=== PATIENT | male | born 1970 | race Two or more races ===

== ENCOUNTER 2021-04-26 07:58 | Outpatient (REF) | payer BC, SELFPAY ==
[2021-04-26 08:17] LABS: Binax Internal Control QC Valid; Binax Now Covid-19 Ag Negative (Negative)
== END 2021-04-26 07:59 | disposition home or self-care (01) ==
LOC: HO.LAB 07:58
PROVIDERS: Visit Provider Internal Medicine
DX: Z13.89 Encounter for screening for other disorder (principal)

== ENCOUNTER 2023-01-12 15:41 | Emergency (ER) | payer BC, SELFPAY ==
[2023-01-12] VITALS (8 sets, daily range): BP systolic 121–145; BP diastolic 67–84; PULSE 61–84; RESP 16–22; TEMP 36.9–37; O2SAT 95–98; BMI 26.6
--- NOTE | 2023-01-12 15:56 | ECG_ITS ---
Test Reason : syncope Blood Pressure : / mmHG Vent. Rate : 058 BPM Atrial Rate : 058 BPM P-R Int : 162 ms QRS Dur : 114 ms QT Int : 432 ms P-R-T Axes : 055 002 002 degrees QTc Int : 424 ms Sinus bradycardia Otherwise normal ECG When compared with ECG of 21-SEP-2019 15:18, Heart rate has decreased Referred By: Generic ED Physician Electronically Signed By:PEREZ KIM MD
[2023-01-12 16:29] LABS: MANUAL DIFF FLAG NO
[2023-01-12 16:35] LABS: Basophils Percent Auto 0.3 % (0-2); Eosinophils Absolute Auto 0.4 X10*3/uL (0.0-0.4); Hematocrit 49.2 % (42.0-52.0); Hemoglobin 15.8 g/dl (14.0-18.0); Imm Gran Abs Auto 0.01 X10*3/uL (0.00-0.03); Imm Gran Pct Auto 0.2 % (0.0-0.4); Lymphocytes Absolute Auto 1.4 X10*3/uL (1.2-4.9); Lymphocytes Percent Auto 23.6 % (20-40); Mean Corpuscular HGB Conc 32.1 g/dl (31.0-36.0); Mean Corpuscular Hemoglobin 26.6 pg (27.0-33.0); Mean Platelet Volume 9.4 fL (9.4-12.4); Monocytes Absolute Auto 0.5 X10*3/uL (0.1-1.2); Monocytes Percent Auto 9.3 % (2-11); Neutrophils Absolute Auto 3.5 x10*3/uL (2.0-8.3); Neutrophils Percent Auto 60.6 % (45-73); Platelet Count 373 X10*3/uL (160-400); Red Blood Count 5.93 X10*6/uL (4.60-5.80); Red Cell Distribution Width 14.5 % (11.0-16.0); White Blood Count 5.8 X10*3/uL (4.8-10.8)
[2023-01-12 16:46] LABS: Anion Gap 16 (12-20); Blood Urea Nitrogen 22 mg/dL (9-16); Calcium 9.4 mg/dL (8.4-10.2); Carbon Dioxide 23 mmol/L (22-29); Chloride 100 mmol/L (96-108); Creatinine Clr Calc Pharmacy 57.9; Estimated Glomerular Filt Rate 50; Glucose Random 112 mg/dL (60-115); Potassium 4.3 mmol/L (3.3-5.1); Sodium 135 mmol/L (135-145)
[2023-01-12 16:57] LABS: Troponin-I High Sensitivity < 2.7 ng/L (<3.5-35.0)
[2023-01-12 17:10] LABS: Appearance Urine Clear; Color Urine Yellow; Glucose Urine UA Negative (Negative); Leukocyte Esterase Urine Negative (Negative); Nitrite Urine Negative (Negative); Urine Blood Negative (Negative); Urine Ketones 15 mg/dL (Negative); Urine Protein Trace mg/dL (Neg-Trace)
--- NOTE | 2023-01-12 18:11 | ED_ITS ---
HPI - Syncope General Chief Complaint: Syncope Stated Complaint: MULT SYNCOPAL EPISODES,1 WITNESSED BY EMS Time Seen by Provider: 01/12/23 16:35 Source: patient Mode of arrival: EMS Limitations: no limitations History of Present Illness HPI narrative: Patient history of syncope episode in the about 3 years ago had full workup done including Holter monitoring and cardiac evaluation and sleep study which was normal today patient was shopping at [employer] got angry had a verbal argument on the phone then started feeling dizzy and lightheaded sat down and almost passed out no seizure-like activity no confusion patient had 2 more near-syncope per EMS person denied any . No incontinence no postictal confusion no headache no intra no chest pain or palpitation. at this time patient is back to normal lab workup done prior to my evaluation which is normal Related Data Allergies Allergy/AdvReac Type Severity Reaction Status Date / Time aspirin [ASPIRIN] Allergy Unknown SWELLING Unverified 12/11/19 16:44 Aspirin Allergy Unknown Uncoded 08/01/11 00:00 SHELLFISH Allergy Unknown SWELLING Uncoded 12/11/19 16:44 Review of Systems 2 Review of Systems: Yes all other systems are reviewed and are negative [facility] Social History Social History Smoked in Last 30 Days: No Use of substances other than those prescribed or required for medical reasons: No Advance Directives: No Advance Directives Information Provided: No Physical Exam 2 Vital Signs: Vital Signs: Last Vital Signs Temp 98.6 F 01/12/23 17:22 Pulse 79 01/12/23 18:27 Resp 18 01/12/23 18:25 BP 145/73 H 01/12/23 18:27 Pulse Ox 96 01/12/23 18:25 O2 Del Method Room Air 01/12/23 18:25 BMI result Body Mass Index 26.6 Appearance: Alert. Oriented X3. No acute distress. Eyes: PERRLA, No Nystagmus ENT: Pharynx normal. Oral Mucosa moist no tongue bite Neck: Normal inspection. Neck supple. CVS: Normal heart rate and rhythm. Pulses normal. Respiratory: No respiratory distress. Equal air entry bilateral, no wheezing/rales/rhonchi Abdomen: Soft and nontender. Bowel sounds are present, no mass palpable, no CVA tenderness Skin: Skin warm and dry. Normal skin color. Normal skin turgor. Extremities: No lower extremity edema. No calf tenderness Neuro: Oriented X 3. No motor deficit. No sensory deficit.No cerebellar signs , cranial nerves II-XII intact Medical Decision Making Medical Decision Making [facility] Narrative: Patient with near-syncope episode after been on the phone in anger. 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 Patient advised to drink plenty of fluids and follow with PCP Differential Diagnosis Differential Diagnoses: The differential diagnosis associated with the presentation includes Syncope/seizure/absence seizures/cardiac arrhythmias/panic attack/vasovagal episode Lab Data [facility] Lab Attestation statement: I reviewed the patient's lab results. 01/12/23 16:26 01/12/23 16:26 Labs: Lab Results 01/12/23 01/12/23 Range/Units 16:26 17:03 WBC 5.8 (4.8-10.8) X10*3/uL RBC 5.93 H (4.60-5.80) X10*6/uL Hgb 15.8 (14.0-18.0) g/dl Hct 49.2 (42.0-52.0) % MCV 83.0 (80.0-98.0) fL MCH 26.6 L (27.0-33.0) pg MCHC 32.1 (31.0-36.0) g/dl RDW 14.5 (11.0-16.0) % Plt Count 373 (160-400) X10*3/uL MPV 9.4 (9.4-12.4) fL Immature Gran % (Auto) 0.2 (0.0-0.4) % Neut % (Auto) 60.6 (45-73) % Lymph % (Auto) 23.6 (20-40) % [place] % (Auto) 9.3 (2-11) % Eos % (Auto) 6.0 H (0-4) % Baso % (Auto) 0.3 (0-2) % Lymph # (Auto) 1.4 (1.2-4.9) X10*3/uL [place] # (Auto) 0.5 (0.1-1.2) X10*3/uL Eos # (Auto) 0.4 (0.0-0.4) X10*3/uL Baso # (Auto) 0.0 (0.0-0.2) X10*3/uL Abs Immat Gran (auto) 0.01 (0.00-0.03) X10*3/uL Absolute Neuts (auto) 3.5 (2.0-8.3) x10*3/uL Absolute Nucleated RBC 0.000 (0.0-0.012) X10*3/uL Nucleated RBC % (auto) 0.0 (0.0-0.2) /100WBC Sodium 135 (135-145) mmol/L Potassium 4.3 (3.3-5.1) mmol/L Chloride 100 (96-108) mmol/L Carbon Dioxide 23 (22-29) mmol/L Anion Gap 16 (12-20) BUN 22 H (9-16) mg/dL Creatinine 1.49 H (0.5-1.4) mg/dL Estim Creat Clear Calc 57.9 Estimated GFR 50 Random Glucose 112 (60-115) mg/dL Calcium 9.4 (8.4-10.2) mg/dL Troponin I High Sens < 2.7 (<3.5-35.0) ng/L Urine Color Yellow Urine Appearance Clear Urine pH 7.0 (5.0-9.0) Ur Specific [place] 1.020 (1.005-1.025) Urine Protein Trace (Neg-Trace) mg/dL Urine Glucose (UA) Negative (Negative) mg/dL Urine Ketones 15 (Negative) mg/dL Urine Blood Negative (Negative) Urine Nitrite Negative (Negative) Ur Leukocyte Esterase Negative (Negative) Independent Interpretation I performed an independent interpretation of an: EKG Interpretation: Sinus bradycardia heart rate 58 beats per minute normal interval normal axis no acute ST T wave changes no acute ischemia Discharge Plan Discharge Clinical Impression: Vasovagal syncope Patient Disposition: Home, Self-Care Instructions: Near Syncope (ED) Additional Instructions: Drink plenty of fluids And follow with PCP for further management Your kidney number slightly elevated you have to follow-up with your PCP Stand Alone Forms: Work/School Release
== END 2023-01-12 18:36 | disposition home or self-care (01) ==
PROVIDERS: Emergency Provider Internal Medicine; PCP Internal Medicine
DX: R55 Syncope and collapse (principal)
CPT/HCPCS: 36415; 80048; 81003; 84484; 85025; 93005; 99283; 99285

== ENCOUNTER 2024-06-17 09:37 | Outpatient (AMB) | payer OTHER, SELFPAY ==
--- NOTE | 2024-06-17 09:48 | A.OFFPC_ITS ---
Vital Signs 06/17/24 09:53 Height 5 ft 4.5 in Weight 200 lb BMI 33.8 BP 170/82 H Blood Pressure Location Rt brachial Pulse 62 Pulse Source Pulse Oximeter Temp 97.5 F Pulse Oximetry (%) 96 Intake Visit Reasons: Annual Physical Exam Intake Note: when he eats feels food gets stuck in upper part of chest, needs colonoscopy, pain in right shoulder same as when he had issues in left shoulder before surgery and would like blood work done has been feeling tired, and in the bedroom has not been great. Allergies aspirin [ASPIRIN] Allergy (Unknown, Verified 06/17/24 09:53) SWELLING Aspirin Allergy (Unknown, Uncoded 06/17/24 09:53) Hives SHELLFISH Allergy (Unknown, Uncoded 12/11/19 16:44) SWELLING Medication List - Last Reconciled 06/17/24 by Brianna Malone PA-C omeprazole 20 mg PO DAILY PFSH Medical History (Updated 06/17/24 @ 10:43 by Brianna Malone PA-C) Elevated blood pressure reading in office without diagnosis of hypertension Class 1 obesity with body mass index (BMI) of 33.0 to 33.9 in adult Hearing loss in right ear Establishing care with new doctor, encounter for Annual physical exam Decreased range of motion of right shoulder Right shoulder pain GERD (gastroesophageal reflux disease) Nausea & vomiting Low libido Colon cancer screening Physical exam (Primary Care) Vital Signs: Last Vital Signs Temp 97.5 F 06/17/24 09:53 Pulse 62 06/17/24 09:53 BP 170/82 H 06/17/24 09:53 Pulse Ox 96 06/17/24 09:53 Care Plan Goal for BP management: <130/80; patient offered to be started on antihypertensive although patient hesitant he would like to go home keep a diary his blood pressure for the next 2 weeks and return with blood pressure diary. He understands if his blood pressure is elevated at home for the next 2 weeks and he will be started on a blood pressure medication at his 2 week visit. He is instructed to call us prior if his blood pressure is elevated and if he is having any neuro or cardiac related complaints. Patient understands this plan. BMI result Body Mass Index 33.8 BMI Assessment/Plan discussion: High BMI High, discussed plan: lifestyle, weight reduction, dietary, physical activity and alcohol moderation Coding Level of Care Code New Pt Prev Care 40-64y(26271) Diagnoses Annual physical exam Z00.00 Establishing care with new doctor, encounter for Z76.89 Colon cancer screening Z12.11 Low libido R68.82 Nausea & vomiting R11.2 GERD (gastroesophageal reflux disease) K21.9 Right shoulder pain M25.511 Decreased range of motion of right shoulder M25.611 Hearing loss in right ear H91.91 Class 1 obesity with body mass index (BMI) of 33.0 to 33.9 in adult E66.811; Z68.33 Elevated blood pressure reading in office without diagnosis of hypertension R03.0 Assessment & Plan Assessment & Plan (1) Annual physical exam: Code(s): Z00.00 - Encounter for general adult medical examination without abnormal findings Category: Medical (2) Establishing care with new doctor, encounter for: Code(s): Z76.89 - Persons encountering health services in other specified circumstances Category: Medical (3) Colon cancer screening: Code(s): Z12.11 - Encounter for screening for malignant neoplasm of colon Category: Medical Plan: Patient denies any weight loss, black or bloody stools, history of colon cancer. Will refer to GI for colon cancer screening. (4) Low libido: Code(s): R68.82 - Decreased libido Category: Medical Plan: Patient reports low libido, no energy and would like his testosterone levels checked along with a few vitamins level he requested. Will also refer to urologist. Condition is chronic and stable continue to monitor. (5) Nausea & vomiting: Code(s): R11.2 - Nausea with vomiting, unspecified Category: Medical Plan: Patient reports intermittent pain, pressure sensation with feeling like he has the vomit due to feeling to full may be related to GERD. Will start patient on omeprazole 20 mg daily. Referred to Gastroenterology for possible endoscope along with colonoscopy. Condition is chronic and stable continue to monitor. (6) GERD (gastroesophageal reflux disease): Code(s): K21.9 - Gastro-esophageal reflux disease without esophagitis Category: Medical Plan: Patient reports intermittent pain, pressure sensation with feeling like he has the vomit due to feeling to full may be related to GERD. Will start patient on omeprazole 20 mg daily. Referred to Gastroenterology for possible endoscope along with colonoscopy. Condition is chronic and stable continue to monitor. (7) Right shoulder pain: Code(s): M25.511 - Pain in right shoulder Category: Medical Plan: Patient reports chronic left shoulder pain with prior surgery due to prior rotator cuff injury. Does lift and go to the gym/exercising daily. Will order right shoulder x-ray and refer to ortho. Condition is chronic and stable continue to monitor. (8) Decreased range of motion of right shoulder: Code(s): M25.611 - Stiffness of right shoulder, not elsewhere classified Category: Medical Plan: Patient reports chronic left shoulder pain with prior surgery due to prior rotator cuff injury. Does lift and go to the gym/exercising daily. Will order right shoulder x-ray and refer to ortho. Condition is chronic and stable continue to monitor. (9) Hearing loss in right ear: Code(s): H91.91 - Unspecified hearing loss, right ear Category: Medical Plan: Patient reports chronic decreased/hearing loss to the right ear. In the past was offered hearing aids or cochlear implant. Will refer to ENT for further evaluation and management. Condition is chronic and stable continue to monitor. (10) Class 1 obesity with body mass index (BMI) of 33.0 to 33.9 in adult: Code(s): E66.811 - Obesity, class 1; Z68.33 - Body mass index [BMI] 33.0-33.9, adult Category: Medical Plan: Patient to improve his diet and exercise regimen. Condition is chronic and stable continue to monitor. (11) Elevated blood pressure reading in office without diagnosis of hypertension: Code(s): R03.0 - Elevated blood-pressure reading, without diagnosis of hypertension Category: Medical Plan: <130/80; patient offered to be started on antihypertensive although patient hesitant he would like to go home keep a diary his blood pressure for the next 2 weeks and return with blood pressure diary. He understands if his blood pressure is elevated at home for the next 2 weeks and he will be started on a blood pressure medication at his 2 week visit. He is instructed to call us prior if his blood pressure is elevated and if he is having any neuro or cardiac related complaints. Patient understands this plan. Plan Plan Patient was informed and verbally consented to the use of an ambient scribe for clinic note documentation during this visit. 1. Low Libido And Potential Hypogonadism Ordered endocrine testing; referral to urology discussed if results suggest abnormalities. 2. Suspected Gerd Prescribed omeprazole and made a referral to gastroenterology for further evaluation and testing. 3. Unspecified hearing loss, unspecified ear Discussed ENT referral, detailing current technology advancements as options. 4. Essential Hypertension Home monitoring of blood pressure was recommended with potential initiation of antihypertensive therapy after review. Diet modifications and daily tracking advised. 5. Right Shoulder Pain And Decreased Range Of Motion Ordered x-ray and referred to orthopedics for assessment and possible further investigation. 6. Hyperlipidemia Recommended lipid panel evaluation for status assessment and management. 7. Vasovagal Syncope Continued monitoring with emphasis on lifestyle and environmental triggers. Discussion Notes During the consultation, we addressed several chronic and emerging health concerns, evaluating and advising on potential management plans. I discussed with the patient the importance of monitoring and potentially starting medication for hypertension, based on recorded pressures and symptoms. The patient was informed of the necessity to consult orthopedics and ENT specialists for persistent musculoskeletal and auditory deficits. Regarding gastrointestinal symptoms, pharmacological management with omeprazole was started, with a follow-up at gastroenterology for a thorough evaluation and possible tests, including an H. pylori assessment. I emphasized the implications of not undergoing routine age-related screenings like colonoscopy, considering familial predispositions. There was a detailed review of recurrent syncope, recommending vigilance for precipitating contexts. With concerns of libido reduction and testosterone deficiency, laboratory analyses and potential urological consultations were discussed to explore underlying causes. We reviewed prior lipid management and advocated subsequent checks and lifestyle modifications aimed at control. I guided the patient through follow-up procedures, mindful of the configuration of his health maintenance journey. Encouragement was provided to seek further opinions on auditory impairment with a low invasion option. Each component of the plan was accompanied by an explanation, per the patient's safety and informed decisions. Scheduled follow- up was secured for cohesive care continuity. Orders: Orders Complete Blood Count Auto Diff Today Z00.00 - Encounter for general adult medical examination without abnormal findings Comprehensive [place]. Panel Fast Today Z00.00 - Encounter for general adult medical examination without abnormal findings C Reactive Protein Today Z00.00 - Encounter for general adult medical examination without abnormal findings Lipid Panel Today Z00.00 - Encounter for general adult medical examination without abnormal findings Testosterone, Total Today Z00.00 - Encounter for general adult medical examination without abnormal findings Magnesium Today Z00.00 - Encounter for general adult medical examination without abnormal findings Vitamin B12 and Folate Today Z00.00 - Encounter for general adult medical ex amination without abnormal findings TSH reflex Free T4 Today Z00.00 - Encounter for general adult medical examination without abnormal findings PSA,Total (Free>4and<10) Today Z00.00 - Encounter for general adult medical examination without abnormal findings H pylori Ag Stool Today K21.9 - Gastro-esophageal reflux disease without esophagitis, R11.2 - Nausea with vomiting, unspecified, R68.82 - Decreased libido, Z12.11 - Encounter for screening for malignant neoplasm of colon XR shoulder RT min 2V Today M25.511 - Pain in right shoulder Hemoglobin A1c Today Z00.00 - Encounter for general adult medical examination without abnormal findings Liver Panel Today Z00.00 - Encounter for general adult medical examination without abnormal findings Vitamin D 25-OH Total Today Z00.00 - Encounter for general adult medical examination without abnormal findings Referrals Gastroenterology Referral Z12.11 - Encounter for screening for malignant neoplasm of colon Urology Referral R68.82 - Decreased libido Orthopedics Referral M25.511 - Pain in right shoulder, M25.611 - Stiffness of right shoulder, not elsewhere classified Ear/Nose/Throat Referral H91.91 - Unspecified hearing loss, right ear Medications: New omeprazole 20 mg PO DAILY 90 caps 1RF Patient Instructions: Patient Instructions - Monitor blood pressure daily at home using a purchased blood pressure cuff; report findings at next visit. - Maintain a low sodium diet to help manage hypertension. - Take omeprazole 20 mg daily as prescribed for suspected GERD. - Follow up with gastroenterology to test for H. pylori and discuss further testing for GERD. - Schedule an orthopedic consultation for right shoulder pain assessment. - Minimize triggers that may induce syncope episodes. - Schedule routine blood work for comprehensive panels, including lipids, testosterone, and PSA. - Schedule a colonoscopy for colorectal cancer screening. - Consider making an appointment with an ENT specialist to discuss hearing loss solutions. Scribe Plan - Not visible on output: History of Present Illness The patient is a 54-year-old male presenting for a routine annual physical examination, to establish a new primary care provider as he has not seen a PCP in over 20-25 years and in addition evaluation of multiple chronic conditions. Today his blood pressure was noted to be elevated. He reports he was never diagnosed with elevated blood pressure although when I reviewed the patient's prior blood pressure appears his blood pressure has been steadily climbing since . He denies any cardiac related complaints or neuro related complaints at this time. The patient has undergone surgical repair for a rotator cuff injury on the left shoulder but now experiences similar symptoms on the right side, described as sharp pain hindering range of motion, especially in the morning. Worse with range of motion. He normally works out although does not do any of the heavy lifting as much as before. He denies ever having imaging of the right shoulder. He denies any recent falls or direct trauma to the right shoulder, weakness, paresthesias or any symptoms related to this. Patient reports a prior history of hyperlipidemia which is controlled by diet and exercise patient reports. Cardiovascular history reveals vasovagal syncope, infrequent blackouts suggestive of panic attacks or hyperventilation, and relevant past EKGs showing sinus bradycardia without recent episodes. Diagnostic workup from 2022 indicated elevated kidney function, not yet rechecked. He reports gastrointestinal symptoms suggestive of GERD, such as dysphagia- induced discomfort, alleviated occasionally by induced vomiting or hiccupping, possibly indicative of esophageal disturbances. Discussions highlighted potential for hernia, GERD management, and assumptions with an H. pylori link from family history. Additionally, the patient encounters low libido and explores possible hypogonadism, planning consultations with urology specialists. Despite right ear auditory shortcomings over decades, treatment suggestions like hearing aids or implants have been consistently disregarded. Positive nutritional habits are referenced, and there appears to be no surrender to substance or alcohol abuse. Social History - Exercises regularly at a gym with modified routines to prevent injury. - Nutritional intake mainly consists of rice, chicken, ground beef, with no mention of alcohol or tobacco use. - Reports being deaf in the right ear for many years, possibly affecting communication. - , discusses healthcare concerns with a family member. - Has never had a colonoscopy but plans to undergo colorectal cancer screening following family suggestions. Review of Systems - Cardiovascular: Reports dizziness associated with syncope. - Musculoskeletal: Reports right shoulder sharp, stabbing pain; decreased range of motion. - Gastrointestinal: Reports feeling of food getting stuck, relieved by vomiting or hiccupping. Physical Exam Appearance: Alert. Oriented X3. No acute distress. Head: Normal external exam. Normocephalic. Atraumatic. Eyes: Pupils are equal, round, and reactive to light. Extraocular movements intact. Conjunctiva and sclera normal. Eyelids normal. Ears: External auditory canal normal. Tympanic membranes normal. Patient reports being deaf in the right ear. Throat: Pharynx normal. Uvula midline. Moist mucous membranes. Neck: Normal inspection. Neck supple. Full range of motion. No adenopathy. Thyroid Normal. No meningeal signs. No neck mass noted. Cardiovascular: Normal heart rate and rhythm. Heart sound normal. No murmurs noted. Pulses normal throughout. Blood pressure reported as high, with a recent reading of 170/82. Respiratory: No respiratory distress. Painless inspiration. Breath sounds normal. No wheezes/rales/rhonchi noted. Chest nontender. No accessory muscle usage noted or decreased air movement noted. Abdomen: Soft and nontender. Bowel sounds normal in all 4 quadrants. No distention noted. No organomegaly noted. No visible injury noted. Back: No costovertebral angle tenderness. Full range of motion noted. Skin: Skin warm and dry. Normal skin color. Normal skin turgor. No rashes/lesions/lacerations noted. Extremities: No lower extremity edema. Right shoulder with decreased range of motion when attempting to raise over his head. There is no obvious deformities or obvious ligamentous or tendon injury. There is no joint effusions noted. No extremity edema is noted. Normal pulses. No cyanosis is noted. Normal range of motion to the elbow, hand and wrist joint. Otherwise all other extremities exhibit normal range of motion nontender. Neuro: Oriented X 3. No motor deficit. No sensory deficit. Reflexes normal. Reports episodes of vasovagal syncope and sinus bradycardia on EKG. Results - Labs: Elevated kidney function noted in 2022 labs; cholesterol status unmanaged at present. - Tests: Previous EKG showed sinus bradycardia, normal axis, no acute changes.
[2024-06-17 09:53] VITALS: BP 170/82; PULSE 62; TEMP 36.4; O2SAT 96; BMI 33.8
--- OUTSIDE RECORDS SUMMARY | 2024-06-17 10:51 | XMS_ITS | Clinical Summary ---
Author Organization [facility] Address [address] [place] [address] Care Team Providers Care Fha Underwriter Name Role Phone Ralph Rdz MD Primary Care Provider Allergies Active Allergy Reactions Criticality Noted Date Comments Aspirin 01/10/2017 Seafood 01/10/2017 Medications Medication Sig Dispensed Refills Start Date End Date Status sildenafil (VIAGRA) 50 MG tablet Take 50 mg by mouth daily as needed. 0 11/13/2019 Active atorvastatin (LIPITOR) tablet 40 mg Take 40 mg by mouth daily. 0 01/06/2020 Active clotrimazole (LOTRIMIN AF JOCK ITCH) 1 % cream Apply once daily for 2 weeks to affected area 0 01/10/2017 Active tadalafil (CIALIS) 20 MG tablet Take half a pill at least 30 minutes prior to anticipated sexual activity as one single dose and not more than once daily. 0 02/12/2017 Active meloxicam (MOBIC) 15 MG tablet Take 1 tablet daily for 7 days following surgery, beginning the night of surgery 7 tablet 0 03/29/2020 Active gabapentin (Neurontin) 300 MG capsule Take 300mg for 3 days at bedtime. Please start 1 night prior to surgery 3 capsule 0 03/29/2020 Active oxyCODONE (ROXICODONE) 5 MG immediate release tablet Take 1 tablet (5 mg total) by mouth every 6 (six) hours as needed for pain. Do not take until after surgery 25 tablet 0 03/29/2020 Active promethazine (PHENERGAN) 12.5 MG tablet Take 1 tablet (12.5 mg total) by mouth every 8 (eight) hours as needed for nausea. Use after surgery as needed 4 tablet 0 03/29/2020 Active tiZANidine (ZANAFLEX) 2 MG tablet Take 2 mg by mouth 3 (three) times a day as needed. 0 03/01/2020 Active Active Problems No known active problems Family History Medical History Relation Name Comments Cancer Father Cancer Mother Relation Name Status Comments Father Mother Social History Tobacco Use Types Packs/Day Years Used Date Smoking Tobacco: Never Smokeless Tobacco: Never Alcohol Use Standard Drinks/Week Comments No 0 (1 standard drink = 0.6 oz pur e alcohol) Sex and Gender Information Value Date Recorded Sex Assigned at Not on file Gender Identity Not on file Sexual Orientation Not on file Job Start Date Occupation Industry Not on file Not on file Not on file Last Filed Vital Signs Vital Sign Reading Time Taken Comments Blood Pressure - - Pulse - - Temperature - - Respiratory Rate - - Oxygen Saturation - - Inhaled Oxygen Concentration - - Weight 93 kg (205 lb) 06/14/2020 2:05 PM EDT Height 162.6 cm (5' 4 ) 06/14/2020 2:05 PM EDT Body Mass Index 35.19 06/14/2020 2:05 PM EDT Plan of Treatment Health Maintenance Due Date Last Done Comments Hepatitis B Vaccines (1 of 3 - 3-dose series) 1970 Hepatitis C Screening 1970 COVID-19 Vaccine (#1) 1970 Depression Screening 1982 BMI Counseling 02/06/1988 Preventative Health Evaluation 02/06/1988 DTap / Tdap / Td (1 - Tdap) 1989 Colon Cancer Screening (Colonoscopy) 2015 Shingrix-Zoster Vaccine (1 of 2) 02/06/2020 Influenza Vaccine (#1) 2023 02/08/2017 Pneumococcal Vaccine Aged Out No long er eligible based on patient's age to complete this topic RSV Ped < 20 months Aged Out No longe r eligible based on patient's age to complete this topic Care Teams Fha Underwriter Relationship Specialty Start Date End Date Ralph Rdz MD [address] [place] [id number] PCP - General Internal Medicine 01/02/20
--- OUTSIDE RECORDS SUMMARY | 2024-06-17 10:51 | XMS_ITS | Continuity of Care Document ---
Author Organization [facility] [address] [place] [address] Phone [phone] Social History Type Date Description Comments Sex Unknown Medical Devices Description No Information Available Encounters Description No Information Available Assessments Description No Information Available Plan of Treatment No Information Available Functional Status Description No Information Available Mental Status Description No Information Available Referrals Description No Information Available
== END 2024-06-17 10:23 | disposition home or self-care (01) ==
LOC: HO.HMCSH 09:37
PROVIDERS: PCP Internal Medicine; Visit Provider Physician Assistant Medical
DX: Z00.00 Encounter for general adult medical examination without abnormal findings (principal); Z76.89 Persons encountering health services in other specified circumstances; Z12.11 Encounter for screening for malignant neoplasm of colon; R68.82 Decreased libido; R11.2 Nausea with vomiting, unspecified; K21.9 Gastro-esophageal reflux disease without esophagitis; M25.511 Pain in right shoulder; M25.611 Stiffness of right shoulder, not elsewhere classified; H91.91 Unspecified hearing loss, right ear; E66.811 Obesity, class 1; Z68.33 Body mass index [BMI] 33.0-33.9, adult; R03.0 Elevated blood-pressure reading, without diagnosis of hypertension

== ENCOUNTER → 2024-06-17 09:37 | Outpatient (BNVA) | payer OTHER, SELFPAY | PROVIDERS: PCP Internal Medicine; Visit Provider Physician Assistant Medical ==

== ENCOUNTER 2024-06-21 07:35 | Outpatient (REF) | payer OTHER, SELFPAY ==
[2024-06-21 08:12] LABS: MANUAL DIFF FLAG NO
[2024-06-21 08:36] LABS: Basophils Percent Auto 0.5 % (0-2); Eosinophils Absolute Auto 0.4 X10*3/uL (0.0-0.4); Eosinophils Percent Auto 6.9 % (0-4); Hematocrit 52.7 % (42.0-52.0); Hemoglobin 17.8 g/dl (14.0-18.0); Imm Gran Abs Auto 0.02 X10*3/uL (0.00-0.03); Imm Gran Pct Auto 0.3 % (0.0-0.4); Lymphocytes Absolute Auto 1.8 X10*3/uL (1.2-4.9); Lymphocytes Percent Auto 27.3 % (20-40); Mean Corpuscular HGB Conc 33.8 g/dl (31.0-36.0); Mean Corpuscular Hemoglobin 27.9 pg (27.0-33.0); Mean Corpuscular Volume 82.7 fL (80.0-98.0); Mean Platelet Volume 10.7 fL (9.4-12.4); Monocytes Absolute Auto 0.5 X10*3/uL (0.1-1.2); Monocytes Percent Auto 8.1 % (2-11); Neutrophils Absolute Auto 3.7 x10*3/uL (2.0-8.3); Neutrophils Percent Auto 56.9 % (45-73); Platelet Count 188 X10*3/uL (160-400); Red Blood Count 6.37 X10*6/uL (4.60-5.80); Red Cell Distribution Width 12.6 % (11.0-16.0); White Blood Count 6.4 X10*3/uL (4.8-10.8)
[2024-06-21 08:42] LABS: Estimated Average Glucose 123 mg/dL; Hemoglobin A1c % 5.9 % (<6.0)
[2024-06-21 09:35] LABS: Alanine Aminotransferase 41 U/L (0-40); Albumin Level 4.2 g/dL (3.5-5.0); Alkaline Phosphatase 46 U/L (39-117); Anion Gap 11 (12-20); Aspartate Amino Transferase 45 U/L (5-37); Bilirubin Direct 0.2 mg/dL (0.0-0.5); Bilirubin Total 0.9 mg/dL (0.0-1.0); Blood Urea Nitrogen 13 mg/dL (9-16); C Reactive Protein 0.13 mg/dL (< or = 0.50); Calcium 9.1 mg/dL (8.4-10.2); Carbon Dioxide 22 mmol/L (22-29); Chloride 110 mmol/L (96-108); Cholesterol 201 mg/dL (<200); Estimated Glomerular Filt Rate > 60; Glucose Fasting 91 mg/dL (60-99); HDL Cholesterol 30 mg/dL (>40); LDL Cholesterol Calculated 148 mg/dL (<100); Magnesium 2.4 mg/dL (1.6-2.6); Sodium 139 mmol/L (135-145); Total Protein 7.3 g/dL (6.5-8.0); Triglycerides 118 mg/dL (<150)
[2024-06-21 09:39] LABS: TSH reflex Free T4 0.92 uIU/mL (0.32-4.0); Vitamin D 25-OH Total 21.8 ng/mL (>30)
[2024-06-21 09:44] LABS: PSA,Total (Free>4and<10) 0.67 ng/mL (0.00-4.00)
[2024-06-21 09:58] LABS: Folate 11.7 ng/mL (> or = 4.0); Vitamin B12 724 pg/mL (200-900)
[2024-06-26 15:14] LABS: Testosterone, Total 1665 ng/dL (250-1100)
== END 2024-06-21 07:36 | disposition home or self-care (01) ==
LOC: HO.LAB 07:35
PROVIDERS: PCP Internal Medicine; Visit Provider Physician Assistant Medical
DX: Z00.00 Encounter for general adult medical examination without abnormal findings (principal); R11.2 Nausea with vomiting, unspecified; K21.9 Gastro-esophageal reflux disease without esophagitis; R68.82 Decreased libido; Z12.11 Encounter for screening for malignant neoplasm of colon; Z12.5 Encounter for screening for malignant neoplasm of prostate; Z13.1 Encounter for screening for diabetes mellitus; Z13.6 Encounter for screening for cardiovascular disorders
CPT/HCPCS: 36415; 80053; 80061; 80076; 82248; 82306; 82607; 82746; 83036; 83735; 84153; 84403; 84443; 85025; 86140; 87338

== ENCOUNTER 2024-07-02 09:58 | Outpatient (AMB) | payer OTHER, SELFPAY ==
[2024-07-02 10:06] VITALS: BP 128/88; PULSE 80; RESP 14; TEMP 36.4; O2SAT 97; BMI 34.5
--- NOTE | 2024-07-02 10:06 | A.OFFPC_ITS ---
Vital Signs 07/02/24 10:06 Height 5 ft 4.5 in Weight 204 lb BMI 34.5 BP 128/88 Respiration 14 Pulse 80 Pulse Source Pulse Oximeter Temp 97.6 F Temp Source Temporal Artery Scan Pulse Oximetry (%) 97 Oxygen Delivery Method Room Air Intake Visit Reasons: 2 week f/u Director Of Archives Required: No Accompanied by: Self / Same As Patient Allergies aspirin [ASPIRIN] Allergy (Unknown, Verified 07/02/24 10:32) SWELLING Aspirin Allergy (Unknown, Uncoded 07/02/24 10:32) Hives SHELLFISH Allergy (Unknown, Uncoded 07/02/24 10:32) SWELLING Medication List - Last Reconciled 07/02/24 by Brianna Malone PA-C cholecalciferol (vitamin D3) 25 mcg PO DAILY clarithromycin 500 mg PO BID 14 days metronidazole 500 mg PO TID 14 days omeprazole 20 mg PO BID 14 days rosuvastatin (Crestor) 10 mg PO DAILY Tobacco use date assessed: 07/02/24 Dental Screening Dental Screen Date: 07/02/24 Did you have a dental visit in the last 12 months?: No Did you have a dental problem in the last 6 months where you did not have access to dental care?: No Was dental information given to patient?: Patient has dentist HPI 2 week f/u HPI Details History of Present Illness The patient is a 54-year-old male presenting with a follow-up visit concerning elevated blood pressure reading at his last visit and elevated liver function tests. He reports that his home blood pressure readings have generally been satisfactory but acknowledges instances where stress from work may influence elevations in his readings momentarily. Elevated liver function tests, particularly ALT and AST, with levels at 45 and 41 respectively, prompted further evaluation. The patient denies alcohol intake and describes slight abdominal unease. He previously tested positive for H. pylori and is presently undergoing treatment. In addition to elevated blood pressure readings and liver concerns, the patient experiences low libido, leading to an upcoming urology evaluation. Elevated testosterone is noted; nonetheless, the cause of libido concerns remains under investigation. Regarding auditory health, the patient is awaiting an ENT appointment following noted hearing issues. He also reports pain in his right shoulder, addressed through planned orthopedic consultation. The patient's history with hypercholesterolemia is managed with Crestor, and he's actively making dietary changes. Vitamin D deficiency is supplemented. High B12 levels were previously highlighted but are under control during current assessments. Social History - Employment: Experiencing job-related s tress. - Lifestyle: Engaged in cardiovascular e xercise. - Diet: Modifying diet to manage cholest jhon. - Substance Use: Denies alcohol consumpt ion. - Family Health: Sister with a similar h ealth profile and surgery history; advised on H. pylori testing for family. [facility] Medical History Elevated ALT measurement Elevated AST (SGOT) Abdominal pain H. pylori infection Elevated blood pressure reading in office without diagnosis of hypertension Class 1 obesity with body mass index (BMI) of 33.0 to 33.9 in adult Hearing loss in right ear Establishing care with new doctor, encounter for Annual physical exam Decreased range of motion of right shoulder Right shoulder pain GERD (gastroesophageal reflux disease) Nausea & vomiting Low libido Colon cancer screening Surgical History History of hernia surgery History of shoulder surgery Family History Father Cancer Mother HIV (human immunodeficiency virus infection) Social History Housing: House Alcohol intake: current Alcohol intake frequency: holidays/special occasions only Patient Tobacco Use Status: Never used Tobacco service: No Current occupational status: employed Cognitive needs: No Hearing needs: No Vision needs: Yes (rx glasses) Questionnaire PHQ-9 Over the last 2 weeks, how often have you been bothered by any of the following problems? 1. Little interest or pleasure in doing things: not at all 2. Feeling down, depressed, or hopeless: not at all 3. Trouble falling or staying asleep, or sleeping too much: not at all 4. Feeling tired or having little energy: not at all 5. Poor appetite or overeating: not at all 6. Feeling bad about yourself - or that you are a failure or have let yourself or your family down: not at all 7. Trouble concentrating on things, such as reading the newspaper or watching television: not at all 8. Moving or speaking so slowly that other people could have noticed. Or the opposite - being so fidgety or restless that you have been moving around a lot more than usual: not at all 9. Thoughts that you would be better off or of hurting yourself in some way: not at all Total score: 0 Depression Screening Interpretation: Negative Depression Screening Done: Yes 53492 - PHQ-9 Billing: Yes Source: Developed by Drs. Florencio Marie, Zulema Tinoco, Dong Garduno and colleagues, with an educational hayden from [employer]. Thrive Questionnaire Date Thrive assessed: 07/02/24 I am a: Patient What is your living situation today?: I have a steady place to live Within the past 12 months, did the food you bought not last and you didn't have the money to get more?: Never true Within the past 12 months, did you worry whether your food would run out before you got money to buy more?: Never true Do you have trouble paying for medicines?: No Do you have trouble getting transportation to medical appointments?: No Do you have trouble paying your heating and electricity bill?: No Do you have trouble taking care of your child, family member or friend?: No Do you have trouble with day-to-day activities such as bathing, preparing meals, shopping, managing finances, etc.?: No Are you currently unemployed and looking for a job?: No Are you interested in more education?: No Please select the resources that you would like help with: None THRIVE Score: 0 AUDIT C Alcohol Use Questionnaire (AUDIT-C) 1. How often do you have a drink containing alcohol?: Monthly or less 2. How many drinks containing alcohol do you have on a typical day when you are drinking?: 1 or 2 3. How often do you have six or more drinks on one occasion?: Never Total Score: 1 Score Reviewed/Action Taken: No WILTON-7 AMB Questionnaire WILTON-7 Date WILTON - 7 assessed: 07/02/24 Feeling nervous, anxious, or on edge: 0 = Not at all Not being able to stop or control worryin = Not at all Worrying too much about different things: 0 = Not at all Trouble relaxin = Not at all Being so restless that it is hard to sit still: 0 = Not at all Becoming easily annoyed or irritable: 0 = Not at all Feeling afraid as if something awful might happen: 0 = Not at all Total WILTON-7 score (0-4 normal; 5-9 mild; 10-14 moderate; 15-21 severe): 0 Source: Developed by Drs. Florencio Marie, Zulema Tinoco, Dong Garduno and colleagues, with an educational hayden from [employer]. WILTON-7 Assessment Billing WILTON-7 Assessment Tool: WILTON-7 Assessment 44574 Review of Systems Const Details: - Cardiovascular: Reports mild stress-related fluctuations in blood pressure. - Gastrointestinal: Reports abdominal discomfort; denies pain; positive for H. pylori. - Endocrine: Acknowledges low libido. - Musculoskeletal: Reports right shoulder pain. - Ear, Nose, Throat: Reports hearing issues. - Psychiatric: Denies mood disturbances but acknowledges job-related stress. Physical exam (Primary Care) Vital Signs: Last Vital Signs Temp 97.6 F 07/02/24 10:06 Pulse 80 07/02/24 10:06 Resp 14 07/02/24 10:06 BP 128/88 07/02/24 10:06 Pulse Ox 97 07/02/24 10:06 Oxygen Delivery Method Room Air 07/02/24 10:06 Care Plan Goal for BP management: <130/80 at Goal BMI result Body Mass Index 34.5 BMI Assessment/Plan discussion: High BMI High, discussed plan: lifestyle, weight reduction, dietary, physical activity and alcohol moderation Tobacco/Smoking Status: Tobacco use Status Tobacco use date assessed 07/02/24 07/02/24 10:16 Patient Tobacco Use Status Never used Tobacco 07/02/24 10:16 PHQ-9: PHQ-9 Score PHQ-9: Total score 0 07/02/24 10:16 Depression Screening Interpretation: Negative Thrive Assessment: Date of Thrive Assessment Date Thrive assessed 07/02/24 07/02/24 10:16 Const Other: Physical Exam Appearance: Alert. Oriented X3. No acute distress. Head: Normal external exam. Normocephalic. Atraumatic. Eyes: Pupils are equal, round, and reactive to light. Extraocular movements intact. Conjunctiva and sclera normal. Eyelids normal. Throat: Pharynx normal. Uvula midline. Moist mucous membranes. Neck: Normal inspection. Neck supple. Full range of motion. Cardiovascular: Normal heart rate and rhythm. Heart sound normal. No murmurs noted. Respiratory: No respiratory distress. Painless inspiration. Breath sounds sharon l. Abdomen: Soft and nontendermild upper abd pain. Back: Full range of motion noted. Skin: Skin warm and dry. Normal skin color. Normal skin turgor. No rashes/lesions/lacerations noted. Extremities: Extremities exhibit normal range of motion. Extremities nontender. Neuro: Oriented X 3. No motor deficit. No sensory deficit. Reflexes normal. Results Reviewed Results Reviewed: Results - Labs: Elevated ALT (45) and AST (41), vitamin D deficiency, elevated B12 levels. - Tests and Diagnostics: Positive H. pylori; abdominal ultrasound planned pending prior discussions. Coding Level of Care Code Est Pt Level 3 (13108) Complex EM visit Add On G2211 Diagnoses H. pylori infection A04.8 GERD (gastroesophageal reflux disease) K21.9 Nausea & vomiting R11.2 Abdominal pain R10.9 Elevated ALT measurement R74.01 Elevated AST (SGOT) R74.01 Decreased range of motion of right shoulder M25.611 Low libido R68.82 Hearing loss in right ear H91.91 Class 1 obesity with body mass index (BMI) of 33.0 to 33.9 in adult E66.811; Z68.33 Elevated blood pressure reading in office without diagnosis of hypertension R03.0 Additional Codes PHQ-9 - 95368 - PHQ-9 Billing: Yes ([id number]) WILTON-7 Assessment Billing - WILTON-7 Assessment Tool: WILTON-7 Assessment 25011 ([id number]) Assessment & Plan Assessment & Plan (1) H. pylori infection: Code(s): A04.8 - Other specified bacterial intestinal infections Category: Medical Plan: Complete the prescribed antibiotic course and reassess to confirm eradication. Condition is improving and stable will continue to monitor. (2) GERD (gastroesophageal reflux disease): Code(s): K21.9 - Gastro-esophageal reflux disease without esophagitis Category: Medical Plan: Patient to continue omeprazole 20 mg b.i.d. will follow-up with GI. Condition is chronic and stable continue to monitor. (3) Nausea & vomiting: Code(s): R11.2 - Nausea with vomiting, unspecified Category: Medical Plan: Patient to continue H pylori medications. Follow-up with GI. Condition is improving and stable will continue to monitor. (4) Abdominal pain: Code(s): R10.9 - Unspecified abdominal pain Category: Medical Plan: Patient to continue H pylori medications/treatment. Follow-up with GI. Condition is improving and stable. (5) Elevated ALT measurement: Code(s): R74.01 - Elevation of levels of liver transaminase levels Category: Medical Plan: Patient's AST and ALT mildly elevated he does have mild upper abdominal pain. Will refer to GI. Patient will also have a CT scan abdomen pelvis with and without IV/oral contrast. Condition is new and stable will continue to monitor. (6) Elevated AST (SGOT): Code(s): R74.01 - Elevation of levels of liver transaminase levels Category: Medical Plan: Patient's AST and ALT mildly elevated he does have mild upper abdominal pain. Will refer to GI. Patient will also have a CT scan abdomen pelvis with and without IV/oral contrast. Condition is new and stable will continue to monitor. (7) Decreased range of motion of right shoulder: Code(s): M25.611 - Stiffness of right shoulder, not elsewhere classified Category: Medical Plan: Orthopedic evaluation pending for further management. Condition is chronic and stable continue to monitor. (8) Low libido: Code(s): R68.82 - Decreased libido Category: Medical Plan: Further evaluation by urology to explore and address concerns of low libido, despite adequate testosterone levels. Condition is chronic and stable continue to monitor. (9) Hearing loss in right ear: Code(s): H91.91 - Unspecified hearing loss, right ear Category: Medical Plan: ENT follow-up necessary for accurate diagnosis and intervention. Condition is chronic and stable continue to monitor. (10) Class 1 obesity with body mass index (BMI) of 33.0 to 33.9 in adult: Code(s): E66.811 - Obesity, class 1; Z68.33 - Body mass index [BMI] 33.0-33.9, adult Category: Medical Plan: Patient to improve his diet and exercise regimen. Condition is chronic and stable continue to monitor (11) Elevated blood pressure reading in office without diagnosis of hypertension: Code(s): R03.0 - Elevated blood-pressure reading, without diagnosis of hypertension Category: Medical Plan: Blood pressure is under control with current lifestyle measures; thus no pharmacological treatment is initiated. Monitoring BP remains essential, with stress as a contributory factor needing continued management. Plan Plan Patient was informed and verbally consented to the use of an ambient scribe for clinic note documentation during this visit. 1. Other specified abnormal findings of blood chemistry Further imaging studies planned to evaluate liver status in the context of H. pylori infection and ensure no underlying pathology. 2. Other specified abnormal findings of blood chemistry Maintain observation as levels are stable; no intervention required presently. 3. Right Shoulder Pain Orthopedic evaluation pending for further management. 4. Hearing Issues ENT follow-up necessary for accurate diagnosis and intervention. 5. H. Pylori Infection Complete the prescribed antibiotic course and reassess to confirm eradication. 6. Essential Hypertension Blood pressure is under control with current lifestyle measures; thus no pharmacological treatment is initiated. Monitoring BP remains essential, with stress as a contributory factor needing continued management. 7. Decreased libido Further evaluation by urology to explore and address concerns of low libido, despite adequate testosterone levels. 8. Vitamin D Deficiency Continue vitamin D supplementation as previously prescribed. 9. Hypercholesterolemia Medication with Crestor continues; dietary adjustments remain pivotal in managing cholesterol. Discussion Notes We discussed with the patient primarily focusing on his essential hypertension management, emphasizing the importance of regular monitoring and maintaining lifestyle modifications in light of his reported stressors. I explained the likely association of his elevated liver enzymes with the active H. pylori infection and reassured him with the proposed imaging to rule out further liver pathology. He is adherent to the current course of antibiotics for H. pylori and we discussed the potential need for post-treatment testing. The patient understood the planned urology and ENT referrals for further investigation into his low libido and hearing loss, respectively. We discussed choleterol management with Crestor and reinforced dietary approaches. Stress was placed on completing the current antibiotic course and the importance of probiotic use to mitigate gastrointestinal side effects. Follow-up appointments were scheduled to reassess these ongoing conditions. Orders: Orders CT abdomen pelvis wo/w IV con Today A04.8 - Other specified bacterial intestinal infections, K21.9 - Gastro-esophageal reflux disease without esophagitis, R10.9 - Unspecified abdominal pain, R11.2 - Nausea with vomiting, unspecified, R74.01 - Elevation of levels of liver transaminase levels Patient Instructions: Patient Instructions - Monitor your blood pressure daily and report any sustained high readings. - Complete the full course of antibiotics for H. pylori infection. - Schedule and attend upcoming appointments with urology and ENT as soon as they are confirmed. - Continue your current medication including Crestor and vitamin D supplements. - Incorporate probiotics into your diet while on antibiotics. - Watch for any significant changes in symptoms or new issues. - Follow up in three months for reassessment of your ongoing health concerns.
--- OUTSIDE RECORDS SUMMARY | 2024-07-02 11:06 | XMS_ITS | Clinical Summary ---
Author Organization [facility] Address [address] [place] [address] Care Team Providers Care Toolroom Checker Name Role Phone Ralph Rdz MD Primary Care Provider [phone] Allergies Active Allergy Reactions Criticality Noted Date [...] age to complete this topic Care Teams Toolroom Checker Relationship Specialty Start Date End Date Ralph Rdz MD [address] [place] [id number] PCP - General Internal Medicine 01/02/20
== END 2024-07-02 10:33 | disposition home or self-care (01) ==
LOC: HO.HMCSH 09:58
PROVIDERS: PCP Internal Medicine; Visit Provider Physician Assistant Medical
DX: A04.8 Other specified bacterial intestinal infections (principal); K21.9 Gastro-esophageal reflux disease without esophagitis; R11.2 Nausea with vomiting, unspecified; R10.9 Unspecified abdominal pain; R74.01 Elevation of levels of liver transaminase levels; M25.611 Stiffness of right shoulder, not elsewhere classified; R68.82 Decreased libido; H91.91 Unspecified hearing loss, right ear; E66.811 Obesity, class 1; Z68.33 Body mass index [BMI] 33.0-33.9, adult; R03.0 Elevated blood-pressure reading, without diagnosis of hypertension

== ENCOUNTER → 2024-07-02 09:58 | Outpatient (BNVA) | payer OTHER, SELFPAY | PROVIDERS: PCP Internal Medicine; Visit Provider Physician Assistant Medical | DX: A04.8 Other specified bacterial intestinal infections (principal); K21.9 Gastro-esophageal reflux disease without esophagitis; R11.2 Nausea with vomiting, unspecified; R10.9 Unspecified abdominal pain; R74.01 Elevation of levels of liver transaminase levels; M25.611 Stiffness of right shoulder, not elsewhere classified; R68.82 Decreased libido; H91.91 Unspecified hearing loss, right ear; E66.811 Obesity, class 1; Z68.33 Body mass index [BMI] 33.0-33.9, adult; R03.0 Elevated blood-pressure reading, without diagnosis of hypertension; Z79.899 Other long term (current) drug therapy | CPT/HCPCS: 96127 ==

== ENCOUNTER 2024-08-13 08:21 | Outpatient (AMB) | payer OTHER, SELFPAY ==
--- NOTE | 2024-08-13 08:31 | MHC.OFFVIS ---
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 Patient reports his pain has been present for about 9-10 months. States he believes it may be wear and tear, possibly from the gym. His pain has gotten better the past week. His pain is primarily in his shoulder and at times describes his pain as sharp. He has difficulty with reaching behind his back. Denies numbness or tingling. He has been attending chiropractor services for adjustments and stretches. Hx of left shoulder surgery. 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 He has a h/o Left shoulder RTC srugery and prox bicep tendon surgery approx [address] [facility]. he felt he recovered well from that surgery. He states when he wakes up in the morning he has pain in the right shoulder and when he goes to the gym after he warms up the pain subsides. 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 He does notice some pain with sleeping on the shoulder at night. He states his strength is still good. [facility] Medical History (Updated 08/13/24 @ 08:57 by Emily Rivera PA-C) Elevated ALT measurement Elevated AST (SGOT) Abdominal pain H. pylori infection Elevated blood pressure reading in office without diagnosis of hypertension Class 1 obesity with body mass index (BMI) of 33.0 to 33.9 in adult Hearing loss in right ear Establishing care with new doctor, encounter for Annual physical exam Decreased range of motion of right shoulder Right shoulder pain GERD (gastroesophageal reflux disease) Nausea & vomiting Low libido Colon cancer screening Surgical History History of hernia surgery History of shoulder surgery Family History Father Cancer Mother HIV (human immunodeficiency virus infection) Social History (Updated 08/13/24 @ 08:34 by BULMARO Quijano) Housing: House Alcohol intake: current Alcohol intake frequency: holidays/special occasions only Patient Tobacco Use Status: Never used Tobacco service: No Current occupational status: employed 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 Crepitus with cross body abduction. Mild discomfort with santiago. 5/5 RTC strength. Tenderness over the proximal bicep tendon. NVI. Results Reviewed Results Reviewed: Xrays were obtained in the office today and personally reviewed by me of the right shoulder show mild ac joint oa Assessment & Plan Assessment & Plan (1) Arthritis of right acromioclavicular joint: Code(s): M19.011 - Primary osteoarthritis, right shoulder Category: Medical (2) Tendinitis of right rotator cuff: Code(s): M75.81 - Other shoulder lesions, right shoulder Category: Medical Plan We discussed options today which include PT to work on postural training, scap stab and rtc strength. He is Quite active in the gym and feels as though he can perform these activities on his own. I did give him some information on which exercises to perform. If symptoms persist or worsen he can contact me to discuss formal physical therapy versus steroid injection in the right shoulder. He is content with this plan and will follow up with us as needed. Orders: Orders XR shoulder RT min 2V Today M25.511 - Pain in right shoulder Coding Level of Care Code New Pt Level 3 (43583) Complex EM visit Add On G2211 Diagnoses Arthritis of right acromioclavicular joint M19.011 Tendinitis of right rotator cuff M75.81
[2024-08-13 08:40] VITALS: BMI 34.5
== END 2024-08-13 08:52 | disposition home or self-care (01) ==
LOC: HO.HOS 08:22
PROVIDERS: PCP Internal Medicine; Visit Provider Physician Assistant
DX: M19.011 Primary osteoarthritis, right shoulder (principal); M75.81 Other shoulder lesions, right shoulder
CPT/HCPCS: 99203

== ENCOUNTER → 2024-08-13 08:23 | Outpatient (BNV) | payer OTHER, SELFPAY | PROVIDERS: Visit Provider Radiology Diagnostic Radiology | DX: M19.011 Primary osteoarthritis, right shoulder (principal) | CPT/HCPCS: 73030 ==

== ENCOUNTER 2024-08-13 09:25 | Outpatient (REF) | payer OTHER, SELFPAY ==
--- NOTE | ~2024-08-13 | XR_ITS ---
EXAMINATION: XR SHOULDER 2 OR MORE VIEWS RIGHT HISTORY: M25.511 - Pain in right shoulder COMPARISON: There are no prior studies available for comparison. FINDINGS: Three views of the right shoulder are submitted. Osseous mineralization is normal. There is no fracture or dislocation. The glenohumeral joint is maintained. There is moderate osteoarthritis of the AC joint, with joint space narrowing and osteophyte formation. The soft tissues are unremarkable. XR/XR shoulder RT min 2V IMPRESSION: Moderate osteoarthritis of the AC joint. Electronically signed by: Florencio Joaquin MD 08/13/2024 08:41 AM EDT
--- OUTSIDE RECORDS SUMMARY | 2024-08-14 09:41 | XMS_ITS ---
Continuity of Care Document (CCD) Created on: August 14, 2024 Michael Oleary External Reference #: [id number] : [id number] Sex: Male Author Organization [facility] [address] [place] [address] Phone [phone] Social History Type Date Description Comments Sex Unknown Medical Devices Description No Information Available Encounters Description No Information Available Assessments Description No Information Available Plan of Treatment No Information Available Functional Status Description No Information Available Mental Status Description No Information Available Referrals Description No Information Available
--- OUTSIDE RECORDS SUMMARY | 2024-08-14 09:41 | XMS_ITS | Clinical Summary ---
Author Organization [facility] Address [address] [place] [address] Care Team Providers Care Neuro Urologist Name Role Phone Ralph Rdz MD Primary Care Provider [phone] Allergies Active Allergy Reactions Criticality Noted Date [...] age to complete this topic Care Teams Neuro Urologist Relationship Specialty Start Date End Date Ralph Rdz MD [address] [place] [id number] PCP - General Internal Medicine 01/02/20
== END 2024-08-13 09:26 | disposition home or self-care (01) ==
LOC: HO.HOSX 09:25
PROVIDERS: Visit Provider Physician Assistant
DX: M19.011 Primary osteoarthritis, right shoulder (principal); M75.81 Other shoulder lesions, right shoulder
CPT/HCPCS: 73030

== ENCOUNTER 2024-09-02 11:11 | Outpatient (REF) | payer OTHER, SELFPAY ==
--- OUTSIDE RECORDS SUMMARY | 2024-09-02 13:25 | XMS_ITS | Clinical Summary ---
Author Organization [facility] Address [address] [place] [address] Care Team Providers Care Duplication Specialist Name Role Phone Ralph Rdz MD Primary Care Provider [phone] Allergies Active Allergy Reactions Criticality Noted Date [...] Vaccine (1 of 2) 02/06/2020 Influenza Vaccine (Season Ended) 2024 02/09/20 17 Pneumococcal Vaccine Aged Out No long er eligible based on patient's age to complete this topic RSV Ped < 20 months Aged Out No longe r eligible based on patient's age to complete this topic Care Teams Duplication Specialist Relationship Specialty Start Date End Date Ralph Rdz MD [address] [place] [phone] PCP - General Internal Medicine 01/02/20
[2024-09-02] MEDS: iohexoL 350 MG/ML 100 ML INFUS..BTL IV (15:47)
[2024-09-03 08:54] LABS: Creatinine POC 1.4 mg/dL (0.5-1.4); GFR POC 59
== END 2024-09-02 11:12 | disposition home or self-care (01) ==
LOC: HO.CT 11:11
PROVIDERS: PCP Internal Medicine; Visit Provider Physician Assistant Medical
DX: R74.01 Elevation of levels of liver transaminase levels (principal); R10.9 Unspecified abdominal pain; A04.8 Other specified bacterial intestinal infections; K21.9 Gastro-esophageal reflux disease without esophagitis; R11.2 Nausea with vomiting, unspecified
CPT/HCPCS: 74177; 82565; Q9967

== ENCOUNTER → 2024-09-02 11:14 | Outpatient (BNV) | payer OTHER, SELFPAY | PROVIDERS: PCP Internal Medicine; Visit Provider Specialist | DX: K80.20 Calculus of gallbladder without cholecystitis without obstruction (principal) | CPT/HCPCS: 74177 ==

== ENCOUNTER 2024-09-09 10:57 | Outpatient (AMB) | payer OTHER, SELFPAY ==
--- NOTE | 2024-09-09 11:12 | MHC.PC.OV ---
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 Intake Note: no sleeping only sleeps 3 to 4 hours a night Allergies aspirin [ASPIRIN] Allergy (Unknown, Verified 09/09/24 11:38) SWELLING Aspirin Allergy (Unknown, Uncoded 09/09/24 11:38) Hives SHELLFISH Allergy (Unknown, Uncoded 09/09/24 11:38) SWELLING Medication List - Last Reconciled 09/09/24 by Brianna Malone PA-C cholecalciferol (vitamin D3) 25 mcg PO DAILY rosuvastatin (Crestor) 10 mg PO DAILY Tobacco use date assessed: 07/02/24 Dental Screening Dental Screen Date: 07/02/24 Did you have a dental visit in the last 12 months?: No Did you have a dental problem in the last 6 months where you did not have access to dental care?: No HPI 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 The patient has a history of hyperlipidemia, which is currently managed with medication. He reports that his blood pressure is normal today. The patient also has a history of vitamin D deficiency, for which he takes supplements. Previously, the patient was treated for Helicobacter pylori infection with antibiotics. He is following up with gastroenterology for a colonoscopy scheduled on November 03 to ensure the infection is resolved and for routine screening. 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 He needs to receive the Tdap vaccine and annual flu vaccine as part of the foster care requirements. Social History - Family status: Preparing to become a drive in theater attendant, attending required classes [facility] Medical History (Updated 09/09/24 @ 12:07 by Brianna Malone PA-C) Vitamin D deficiency Hyperlipidemia General medical exam Elevated ALT measurement Elevated AST (SGOT) Abdominal pain H. pylori infection Elevated blood pressure reading in office without diagnosis of hypertension Class 1 obesity with body mass index (BMI) of 33.0 to 33.9 in adult Hearing loss in right ear Establishing care with new doctor, encounter for Annual physical exam Decreased range of motion of right shoulder Right shoulder pain GERD (gastroesophageal reflux disease) Nausea & vomiting Low libido Colon cancer screening Surgical History History of hernia surgery History of shoulder surgery Family History Father Cancer Mother HIV (human immunodeficiency virus infection) Social History Housing: House Alcohol intake: current Alcohol intake frequency: holidays/special occasions only Patient Tobacco Use Status: Never used Tobacco e-Cigarette/Vaping Use: Never Used service: No Current occupational status: employed Current occupation: [employer], 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 Cognitive needs: No Hearing needs: No Vision needs: Yes (rx glasses) Questionnaire Thrive Questionnaire Date Thrive assessed: 07/02/24 AUDIT C Alcohol Use Questionnaire (AUDIT-C) 1. How often do you have a drink containing alcohol?: Monthly or less 2. How many drinks containing alcohol do you have on a typical day when you are drinking?: 1 or 2 3. How often do you have six or more drinks on one occasion?: Never Total Score: 1 Score Reviewed/Action Taken: No WILTON-7 AMB Questionnaire WILTON-7 Date WILTON - 7 assessed: 07/02/24 Feeling nervous, anxious, or on edge: 0 = Not at all Not being able to stop or control worryin = Not at all Worrying too much about different things: 0 = Not at all Trouble relaxin = Not at all Being so restless that it is hard to sit still: 0 = Not at all Becoming easily annoyed or irritable: 0 = Not at all Feeling afraid as if something awful might happen: 0 = Not at all Total WILTON-7 score (0-4 normal; 5-9 mild; 10-14 moderate; 15-21 severe): 0 Source: Developed by Drs. Florencio Marie, Zulema Tinoco, Dong Garduno and colleagues, with an educational hayden from [employer] WILTON-7 Assessment Billing WILTON-7 Assessment Tool: WILTON-7 Assessment 92795 ACT Questionnaire In the past 4 weeks, how much of the time did your asthma keep you from getting as much done at work, school or at home?: None of the time During the past 4 weeks, how often have you had shortness of breath?: Not at all During the past 4 weeks, how often did your asthma symptoms wake you up at night or earlier than usual in the morning?: Not at all During the past 4 weeks, how often have you had to use your rescue inhaler or nebulizer medication?: Not at all Score: 20 Review of Systems Const Details: - Cardiovascular: Denies hypertension, reports normal blood pressure today Physical exam (Primary Care) Vital Signs: Last Vital Signs Temp 98.2 F 09/09/24 11:18 Pulse 75 09/09/24 11:18 BP 132/70 09/09/24 11:18 Pulse Ox 95 09/09/24 11:18 Care Plan Goal for BP management: <140/90 at Goal BMI result Body Mass Index 32.3 BMI Assessment/Plan discussion: High BMI High, discussed plan: lifestyle, weight reduction, dietary, physical activity and alcohol moderation Tobacco/Smoking Status: Tobacco use Status Tobacco use date assessed 07/02/24 09/09/24 11:13 Patient Tobacco Use Status Never used Tobacco 09/09/24 11:13 e-Cigarette/Vaping Use Never Used 09/09/24 11:26 Thrive Assessment: Date of Thrive Assessment Date Thrive assessed 07/02/24 09/09/24 11:13 Const Other: Appearance: Alert. Oriented X3. No acute distress. Head: Normal external exam. Normocephalic. Atraumatic. Eyes: Pupils are equal, round, and reactive to light. Extraocular movements intact. Conjunctiva and sclera normal. Eyelids normal. Throat: Pharynx normal. Uvula midline. Moist mucous membranes. Neck: Normal inspection. Neck supple. Full range of motion. Cardiovascular: Normal heart rate and rhythm. Respiratory: No respiratory distress. Painless inspiration. Back: Full range of motion noted. Skin: Skin warm and dry. Normal skin color. Normal skin turgor. No rashes/lesions/lacerations noted. Extremities: Extremities exhibit normal range of motion. Neuro: Oriented X 3. No motor deficit. No sensory deficit. Reflexes normal. Results Reviewed Results Reviewed: - Labs: Blood work in May was normal except for elevated cholesterol and vitamin D deficiency Coding Level of Care Code Est Pt Level 4 (92126) Complex EM visit Add On G2211 Diagnoses Hyperlipidemia E78.5 Vitamin D deficiency E55.9 H. pylori infection A04.8 Additional Codes WILTON-7 Assessment Billing - WILTON-7 Assessment Tool: WILTON-7 Assessment 19253 ([id number]) Assessment & Plan Assessment & Plan (1) Hyperlipidemia: Code(s): E78.5 - Hyperlipidemia, unspecified Category: Medical Plan: The patient will continue current medication for hyperlipidemia management. Condition is chronic and stable continue to monitor. (2) Vitamin D deficiency: Code(s): E55.9 - Vitamin D deficiency, unspecified Category: Medical Plan: The patient will continue taking vitamin D supplements. Condition is chronic and stable will continue to monitor. (3) H. pylori infection: Code(s): A04.8 - Other specified bacterial intestinal infections Category: Medical Plan: The patient is scheduled for a follow-up colonoscopy on November 03 to ensure resolution of the infection and for routine screening. Plan Plan Patient was informed and verbally consented to the use of an ambient scribe for clinic note documentation during this visit. 1. Hyperlipidemia The patient will continue current medication for hyperlipidemia management. 2. Vitamin D Deficiency The patient will continue taking vitamin D supplements. 3. Helicobacter Pylori Infection The patient is scheduled for a follow-up colonoscopy on November 03 to ensure resolution of the infection and for routine screening. 4. Preventative Care The patient needs to receive the Tdap vaccine and annual flu vaccine as part of foster care requirements. During the visit, we discussed the patient's current health status, including his history of hyperlipidemia and vitamin D deficiency. We reviewed the need for a follow-up colonoscopy to ensure the resolution of Helicobacter pylori infection and routine screening. 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 Orders: Orders T Spot TB Today Z00.00 - Encounter for general adult medical examination without abnormal findings RPR Monitor reflex titer Today Z00.00 - Encounter for general adult medical examination without abnormal findings Medications: Refilled rosuvastatin (Crestor) 10 mg PO DAILY 90 tabs 1RF Patient Instructions: - Continue taking prescribed medication for cholesterol management. - Continue vitamin D supplementation as directed. - Attend the scheduled colonoscopy on November 03. - Schedule and receive the Tdap and flu vaccines as part of foster care requirements.
[2024-09-09 11:18] VITALS: BP 132/70; PULSE 75; TEMP 36.8; O2SAT 95; BMI 32.3
--- OUTSIDE RECORDS SUMMARY | 2024-09-09 12:27 | XMS_ITS | Clinical Summary ---
Author Organization [facility] Address [address] [place] [address] Care Team Providers Care Campaign Assistant Name Role Phone Ralph Rdz MD Primary Care Provider [phone] Allergies Active Allergy Reactions Criticality Noted Date [...] age to complete this topic Care Teams Campaign Assistant Relationship Specialty Start Date End Date Ralph Rdz MD [address] [place] [id number] PCP - General Internal Medicine 01/02/20
== END 2024-09-09 11:57 | disposition home or self-care (01) ==
LOC: HO.HMCSH 10:57
PROVIDERS: PCP Internal Medicine; Visit Provider Physician Assistant Medical
DX: E78.5 Hyperlipidemia, unspecified (principal); E55.9 Vitamin D deficiency, unspecified; A04.8 Other specified bacterial intestinal infections

== ENCOUNTER → 2024-09-09 10:57 | Outpatient (BNVA) | payer OTHER, SELFPAY | PROVIDERS: PCP Internal Medicine; Visit Provider Physician Assistant Medical | DX: E66.811 Obesity, class 1 (principal); E78.5 Hyperlipidemia, unspecified; E55.9 Vitamin D deficiency, unspecified; A04.8 Other specified bacterial intestinal infections; Z68.32 Body mass index [BMI] 32.0-32.9, adult | CPT/HCPCS: 96127; 96160 ==

== ENCOUNTER 2024-09-10 08:38 | Outpatient (AMB) | payer OTHER, SELFPAY ==
--- NOTE | 2024-09-10 08:50 | AM.OFFVISNUR ---
Intake Visit Reasons: T dap vaccine Allergies aspirin (ASPIRIN) Allergy (Unknown, Verified 09/09/24 11:38) SWELLING Aspirin Allergy (Unknown, Uncoded 09/09/24 11:38) Hives SHELLFISH Allergy (Unknown, Uncoded 09/09/24 11:38) SWELLING Immunizations Boostrix Tdap 2.5 Lf unit-8 mcg-5 Lf/0.5 mL intramuscular syringe Performing Provider: Idris Larkin MD [facility] Administered by: Jewels White LPN on 09/10/24 08:50 Dose Route Admin Location Dispensed Lot Number Expiration Date NDC Internal Specialist 0.5 mL IM Left Deltoid 0.5 mL [id number] 11/21/26 [id number] [place] Total Dispensed Waste 0.5 mL 0 % VIS Given Date VIS Provided VIS Publication Date 09/10/24 Single Vaccine 20 Eligibility Eligibility Date Funding Source Not [facility] Eligible 09/10/24 Private Assessment & Plan Assessment & Plan Orders: Orders TDaP Immunization Today Z23 - Encounter for immunization Coding
--- OUTSIDE RECORDS SUMMARY | 2024-09-10 09:03 | XMS_ITS | Clinical Summary ---
Author Organization [facility] Address [address] [place] [address] Care Team Providers Care Chip Unloader Name Role Phone Ralph Rdz MD Primary Care Provider [phone] Allergies Active Allergy Reactions Criticality Noted Date [...] age to complete this topic Care Teams Chip Unloader Relationship Specialty Start Date End Date Ralph Rdz MD [address] [place] [id number] PCP - General Internal Medicine 01/02/20
== END 2024-09-10 08:52 | disposition home or self-care (01) ==
LOC: HO.HMCH 08:38
PROVIDERS: PCP Internal Medicine; Visit Provider Internal Medicine
DX: Z23 Encounter for immunization (principal)

== ENCOUNTER → 2024-09-10 08:38 | Outpatient (BNVA) | payer OTHER, SELFPAY | PROVIDERS: PCP Internal Medicine; Visit Provider Internal Medicine | DX: Z23 Encounter for immunization (principal) | CPT/HCPCS: 90471; 90715 ==

== ENCOUNTER 2024-09-11 08:21 | Outpatient (REF) | payer OTHER, SELFPAY ==
--- OUTSIDE RECORDS SUMMARY | 2024-09-11 08:30 | XMS_ITS | Clinical Summary ---
Author Organization [facility] Address [address] [place] [address] Care Team Providers Care Instruction Assistant Principal Name Role Phone Ralph Rdz MD Primary Care Provider [phone] Allergies Active Allergy Reactions Criticality Noted Date [...] age to complete this topic Care Teams Instruction Assistant Principal Relationship Specialty Start Date End Date Ralph Rdz MD [address] [place] [id number] PCP - General Internal Medicine 01/02/20
[2024-09-13 22:23] LABS: TS Negative Control Passed; TS Panel A 1; TS Panel B 1; TS Positive Control Passed; TSpotTB Negative (Negative)
[2024-09-15 22:33] LABS: RPR Rapid Plasma Reagin NON-REACTIVE (NON-REACTIVE)
== END 2024-09-11 08:22 | disposition home or self-care (01) ==
LOC: HO.LAB 08:21
PROVIDERS: PCP Internal Medicine; Visit Provider Physician Assistant Medical
DX: Z00.00 Encounter for general adult medical examination without abnormal findings (principal)
CPT/HCPCS: 36415; 86481; 86592

== ENCOUNTER 2024-09-24 08:25 | Outpatient (AMB) | payer OTHER, SELFPAY ==
--- OUTSIDE RECORDS SUMMARY | 2024-09-24 08:28 | XMS_ITS | Clinical Summary ---
Author Organization [facility] Address [address] [place] [address] Care Team Providers Care Team Otr Truck Driver Name Role Phone Ralph Rdz MD Primary Care Provider [phone] Allergies Active Allergy Reactions Criticality Noted Date [...] age to complete this topic Care Teams Team Otr Truck Driver Relationship Specialty Start Date End Date Ralph Rdz MD [address] [place] [phone] PCP - General Internal Medicine 01/02/20
--- OUTSIDE RECORDS SUMMARY | 2024-09-24 08:28 | XMS_ITS | Continuity of Care Document ---
Author Organization [facility] [address] [place] [address] Phone [phone] Social History Type Date Description Comments Sex Male Sex Unknown Medical Devices Description No Information Available Encounters Description No Information Available Assessments Description No Information Available Plan of Treatment No Information Available Functional Status Description No Information Available Mental Status Description No Information Available Referrals Description No Information Available
--- NOTE | 2024-09-24 08:46 | A.OFFVIS_ITS ---
Intake Visit Reasons: low libido Intake Note: Patient is present for LOW LIBIDO Urology Medication:NONE Antibiotic Allergy:NONE Blood Thinner:NONE Side Trimmer Required: No Allergies aspirin (ASPIRIN) Allergy (Unknown, Verified 09/24/24 08:47) SWELLING Aspirin Allergy (Unknown, Uncoded 09/24/24 08:47) Hives SHELLFISH Allergy (Unknown, Uncoded 09/24/24 08:47) SWELLING HPI Comments Details: Michael is a pleasant male. He is a patient of Dr. Sotelo He is seen for the following urologic conditions - hypogonadism Long-term use of anabolic steroids for body building Did previously use recovery cycles but has not for quite a while On exam has significant atrophy of his testicles Would recommend maintenance dosing proximally 100 mg weekly for target testosterone 600-800 Typically he was using 250-300 mg during on cycles PFSH Medical History (Updated 09/24/24 @ 09:39 by Parveen Perez MD) Vitamin D deficiency Hyperlipidemia General medical exam Elevated ALT measurement Elevated AST (SGOT) Abdominal pain H. pylori infection Elevated blood pressure reading in office without diagnosis of hypertension Class 1 obesity with body mass index (BMI) of 33.0 to 33.9 in adult Hearing loss in right ear Establishing care with new doctor, encounter for Annual physical exam Decreased range of motion of right shoulder Right shoulder pain GERD (gastroesophageal reflux disease) Nausea & vomiting Low libido Colon cancer screening Surgical History History of hernia surgery History of shoulder surgery Family History Father Cancer Mother HIV (human immunodeficiency virus infection) Social History Housing: House Alcohol intake: current Alcohol intake frequency: holidays/special occasions only Patient Tobacco Use Status: Never used Tobacco e-Cigarette/Vaping Use: Never Used service: No Current occupational status: employed 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, 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 Cognitive needs: No Hearing needs: No Vision needs: Yes (rx glasses) Review of Systems Const Denies chills and Denies fever(s) Card Reports no additional complaints and Denies syncope Resp Denies cough GI Denies abdominal pain and Denies heartburn Reports as per HPI and Denies change in libido Neuro Denies syncope Psych Denies change in libido Endo Denies change in libido Physical Exam Const General: cooperative, healthy appearing, comfortable and no acute distress Orientation/consciousness: patient oriented x3 HEENT Face and sinus: Yes normal facial exam Mouth: moist mucous membranes Neck Neck: Yes normal visual inspection, Yes full ROM and Yes trachea midline Chest Chest palpation & inspection: normal inspection of the chest Resp Effort & Inspection: normal respiratory effort, able to speak in complete sentences and no respiratory distress GI Inspection: Yes normal to inspection Back/Spine/Pelvis Cervical Spine: normal cervical lordosis Thoracic/Lumbar Spine: thoracic and lumbar spine normal to inspection Skin General skin exam: no rashes or lesions noted Neuro General: patient oriented x3, gait normal, tone normal and moves all extremities Extrem General: Yes normal to inspection and Yes capillary refill normal Results AMB Urinalysis, Automated UA Leukoctes 0 Holli/uL Last Edit by KIRAN Rubio on 09/24/24 09:00 UA Nitrite Negative Last Edit by KIRAN Rubio on 09/24/24 09:00 UA Urobilinogen 0.2 mg/dL Last Edit by KIRAN Rubio on 09/24/24 09:0 0 UA Protein 30 mg/dL Last Edit by KIRAN Rubio on 09/24/24 09:00 UA pH 6.0 Last Edit by KIRAN Rubio on 09/24/24 09:00 UA Blood 10 Aidan/uL Last Edit by KIRAN Rubio on 09/24/24 09:00 UA Specific Fonda 1.015 Last Edit by KIRAN Rubio on 09/24/24 09: 00 UA Ketone Positive Last Edit by KIRAN Rubio on 09/24/24 09:00 UA Bilirubin 0 mg/dL Last Edit by KIRAN Rubio on 09/24/24 09:00 UA Glucose 0 mg/dL Last Edit by KIRAN Rubio on 09/24/24 09:00 Results Reviewed Results Reviewed: Laboratory Last Values Urine pH (Auto) 6.0 09/24/24 08:59 Specific Fonda (Auto) 1.015 09/24/24 08:59 Urine Protein (Auto) 30 mg/dL 09/24/24 08:59 Glucose (UA)(Auto) 0 mg/dL 09/24/24 08:59 Urine Ketones (Auto) Positive 09/24/24 08:59 Urine Blood (Auto) 10 Aidan/uL 09/24/24 08:59 Urine Nitrite (Auto) Negative 09/24/24 08:59 Urine Bilirubin (Auto) 0 mg/dL 09/24/24 08:59 Urine Urobilinogen (Auto) 0.2 mg/dL 09/24/24 08:59 Leukocyte Esterase (Auto) 0 Holli/uL 09/24/24 08:59 Assessment & Plan Assessment & Plan (1) Hypogonadism in male: Code(s): E29.1 - Testicular hypofunction Category: Medical Plan Continue with replacement testosterone Orders: Orders Testosterone, Total 6 Months E29.1 - Testicular hypofunction AMB Urinalysis Automated 09/24/24 Z13.9 - Encounter for screening, unspecified Prostate Specific Antigen 6 Months E29.1 - Testicular hypofunction Complete Blood Count no Diff 6 Months E29.1 - Testicular hypofunction Patient Instructions: This note is constructed using voice recognition software. While every effort has been made to ensure accuracy retail seasonal specialist errors may have been included. Imaging studies, laboratory and physical exam results were discussed and reviewed in detail. No major barriers to patient understanding were identified. An opportunity to ask questions regarding the treatment plan was provided. All questions were answered. The patient expressed understanding and agreement with the above treatment plan. The patient is aware they should contact our office by phone for worsening of their current condition or the appearance of new urologic symptoms. Compliance is encouraged with any medications and followup testing that is ordered. It is a privilege to participate in the urologic care of your patient. If you have any questions or concerns regarding treatment for the above conditions, or other urologic issues, please do not hesitate to contact me. The office telephone contact is [phone]. Sincerely, Dr Parveen ePrez MD, [facility] - Urology Compassionate Specialist Care for the Genitourinary System Coding Level of Care Code New Pt Level 4 (24038) Diagnoses Hypogonadism in male E29.1
== END 2024-09-24 09:42 | disposition home or self-care (01) ==
LOC: HO.HUSH 08:26
PROVIDERS: PCP Internal Medicine; Visit Provider Urology
DX: Z13.9 Encounter for screening, unspecified (principal)
CPT/HCPCS: 99204

== ENCOUNTER → 2024-09-24 08:25 | Outpatient (BNVA) | payer OTHER, SELFPAY | PROVIDERS: PCP Internal Medicine; Visit Provider Urology | DX: E29.1 Testicular hypofunction (principal) | CPT/HCPCS: 81003 ==

== ENCOUNTER 2024-10-06 08:44 | Outpatient (AMB) | payer OTHER, SELFPAY ==
--- OUTSIDE RECORDS SUMMARY | 2024-10-06 08:52 | XMS_ITS | Clinical Summary ---
Author Organization [facility] Address [address] [place] [address] Care Team Providers Care Waste Management Engineer Name Role Phone Ralph Rdz MD Primary Care Provider [phone] Allergies Active Allergy Reactions Criticality Noted Date [...] (1 of 2) 02/06/2020 Influenza Vaccine (#1) 2024 02/08/2017 Pneumococcal Vaccine Aged Out No long er eligible based on patient's age to complete this topic RSV Ped < 20 months Aged Out No longe r eligible based on patient's age to complete this topic Care Teams Waste Management Engineer Relationship Specialty Start Date End Date Ralph Rdz MD [address] [place] [id number] PCP - General Internal Medicine 01/02/20
--- OUTSIDE RECORDS SUMMARY | 2024-10-06 08:52 | XMS_ITS | Continuity of Care Document ---
Author Organization [facility] [address] [facility] [address] [place] [address] Phone [phone] Social History Type Date Description Comments Sex Male Sex Unknown Medical Devices Description No Information Available Encounters Description No Information Available Assessments Description No Information Available Plan of Treatment No Information Available Functional Status Description No Information Available Mental Status Description No Information Available Referrals Description No Information Available
[2024-10-06 08:57] VITALS: BP 124/78; PULSE 58; TEMP 36.7; O2SAT 99; BMI 30.8
--- NOTE | 2024-10-06 08:57 | AM.OFFWIN_ITS ---
Intake Vital Signs 3 10/06/24 08:57 Height 5 ft 4.5 in Weight 182 lb 8 oz BMI 30.8 BP 124/78 Blood Pressure Location Rt brachial Position Sitting Pulse 58 Pulse Source Pulse Oximeter Temp 98.1 F Temp Source Core Pulse Oximetry (%) 99 Oxygen Delivery Method Room Air Intake Visit Reasons: EP Muscle pain from an insect bite Intake Note: Patient presents with a rash that seems to be spreading times 2 days. Sensitive to touch, not itchy but has pain when lying down Patient Tobacco Use Status: Never used Tobacco Linux Support Engineer Required: No Allergies aspirin (ASPIRIN) Allergy (Unknown, Verified 10/06/24 09:01) SWELLING Aspirin Allergy (Unknown, Uncoded 09/24/24 08:47) Hives SHELLFISH Allergy (Unknown, Uncoded 09/24/24 08:47) SWELLING Do you need a note to return to daycare/school/sports/work: Yes HPI HPI Comments 2 History of Present Illness0 Details 54 y/o Male patient who presents to the walk in clinic with c/o Rash on his left sided Neck since Sunday. Describes the rash as slightly itchy, red and mild Tenderness around the area. Reports that Sunday he was outside in the Yard, attending a Babyshower and believes he might have been incontact with a plant. [facility] Medical History (Updated 10/06/24 @ 09:35 by Laura Engel NP) Rash and nonspecific skin eruption Contact dermatitis Vitamin D deficiency Hyperlipidemia General medical exam Elevated ALT measurement Elevated AST (SGOT) Abdominal pain H. pylori infection Elevated blood pressure reading in office without diagnosis of hypertension Class 1 obesity with body mass index (BMI) of 33.0 to 33.9 in adult Hearing loss in right ear Establishing care with new doctor, encounter for Annual physical exam Decreased range of motion of right shoulder Right shoulder pain GERD (gastroesophageal reflux disease) Nausea & vomiting Low libido Colon cancer screening Surgical History History of hernia surgery History of shoulder surgery Family History Father Cancer Mother HIV (human immunodeficiency virus infection) Social History Housing: House Alcohol intake: current Alcohol intake frequency: holidays/special occasions only Patient Tobacco Use Status: Never used Tobacco e-Cigarette/Vaping Use: Never Used service: No Current occupational status: employed 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, 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 Erythematous Hives covering the entire left side neck. Neuro General: patient oriented x3, gait normal and moves all extremities Psych Speech and movement: Normal speech and movement present Assessment & Plan Assessment & Plan (1) Rash and nonspecific skin eruption: Code(s): R21 - Rash and other nonspecific skin eruption Plan: DDx's: Allergic vs Eczema vs Dermatitis vs Shingles vs Tinea. Ordered Prednisone and Steroid cream - will Treat it as Hives Medications: New 2 prednisone 50 mg PO DAILY 5 tabs 0RF 5 days R21 - Rash and other nonspecific skin eruption triamcinolone acetonide 0.025% 1 appl topical BID 80 grams 0RF 14 days R21 - Rash and other nonspecific skin eruption Coding Level of Care Code Est Pt Level 4 (94404) Diagnoses Rash and nonspecific skin eruption R21 Time Spent (min) 20
== END 2024-10-06 09:37 | disposition home or self-care (01) ==
PROVIDERS: PCP Internal Medicine; Visit Provider Nurse Practitioner Family
DX: R21 Rash and other nonspecific skin eruption (principal)

== ENCOUNTER 2024-11-03 14:17 | Outpatient (AMB) | payer OTHER, SELFPAY ==
--- NOTE | 2024-11-03 14:23 | A.OFFVIS_ITS ---
Vital Signs 11/03/24 14:30 Height 5 ft 4 in Weight 173 lb BMI 29.7 BP 118/66 Blood Pressure Location Rt brachial Position Sitting Pulse 72 Pulse Source Pulse Oximeter Pulse Oximetry (%) 97 Oxygen Delivery Method Room Air Intake Visit Reasons: colo screening Intake Note: New pt for initial colo screening. CC; C.O. dysphagia without any significant reflux reported, as well as recent H. Pylori tx per PCP. Pt has not taken PPI within the last two weeks and is NPO ~ 1 hr. Will repeat H Pylori Breath Test per provider request. Fruit Pitter Required: No Accompanied by: Self / Same As Patient Allergies aspirin (ASPIRIN) Allergy (Unknown, Verified 11/03/24 14:24) SWELLING shellfish derived Allergy (Unknown, Verified 11/03/24 14:24) Swelling HPI HPI colo screening: Details: 54 year old? male past medical history of transaminitis, hyperlipidemia, H pylori is here today for pre colonoscopy screening.? Patient was sent to us by his PCP.? This is his first colonoscopy screening.? Patient denies any gastrointestinal symptoms iat present.? Patient's maternal uncle was diagnosed with CRC. Patient was treated for H pylori in July by his PCP. Never retest for eradication. He is no longer taking omeprazole. Denies dyspepsia, dysphagia odynophagia. Occasional constipation. He uses fiber as needed. Denies history of difficulty with sedation or anesthesia in the past.? Negative for history of sleep apnea.? Denies any history of cardiac, renal, pulmonary, or hepatic disease.?? No history of infectious? diseases like hepatitis A, B, C, HIV or tuberculosis.? Patient is not on any anticoagulation. [facility] Medical History (Updated 11/03/24 @ 15:14 by Love Koenig [facility]) Postherpetic neuralgia Transaminitis Rash and nonspecific skin eruption Contact dermatitis Vitamin D deficiency Hyperlipidemia General medical exam Elevated ALT measurement Elevated AST (SGOT) Abdominal pain H. pylori infection Elevated blood pressure reading in office without diagnosis of hypertension Class 1 obesity with body mass index (BMI) of 33.0 to 33.9 in adult Hearing loss in right ear Establishing care with new doctor, encounter for Annual physical exam Decreased range of motion of right shoulder Right shoulder pain GERD (gastroesophageal reflux disease) Nausea & vomiting Low libido Colon cancer screening Surgical History History of hernia surgery History of shoulder surgery Family History (Updated 11/03/24 @ 14:30 by KIRAN Bass) Father Cancer Mother HIV (human immunodeficiency virus infection) Maternal Uncle Colon cancer Social History Housing: House Alcohol intake: current Alcohol intake frequency: holidays/special occasions only Patient Tobacco Use Status: Never used Tobacco e-Cigarette/Vaping Use: Never Used service: No Current occupational status: employed Current occupation: [employer] ( [employer] ), 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 Cognitive needs: No Hearing needs: No Vision needs: Yes (rx glasses) Review of Systems Const Denies weight gain and Denies weight loss ENT Reports no additional complaints, Denies dysphagia and Denies odynophagia Card Reports no additional complaints Resp Reports no additional complaints GI Denies abdominal pain, Denies belching, Denies melena, Denies bloating, Denies change in bowel habits, Denies dysphagia, Denies excessive flatus, Denies dyspepsia, Denies heartburn, Denies diarrhea, Denies loose stools, Denies nausea, Denies odynophagia and Denies vomiting Reports no additional complaints Musc Reports no additional complaints Skin/Breast Details: Patient reports sensitivity and pain behind his left ear and left side of the neck Neuro Reports no additional complaints Psych Reports no additional complaints Endo Reports no additional complaints Physical Exam Vital Signs: Last Vital Signs Pulse 72 11/03/24 14:30 BP 118/66 11/03/24 14:30 Pulse Ox 97 11/03/24 14:30 Oxygen Delivery Method Room Air 11/03/24 14:30 BMI result Body Mass Index 29.7 Const General: healthy appearing, no acute distress and well developed Nutritional Appearance: well nourished Orientation/consciousness: patient oriented x3 Resp Effort & Inspection: normal respiratory effort, able to speak in complete sentences, no tracheal deviation and symmetric chest movement Auscultation: clear to auscultation bilaterally Cardio Rate: regular rate GI Inspection: Yes normal to inspection and No distended Palpation (GI): Soft to palpation, not firm, nontender and No hepatosplenomegaly present Auscultation: normal bowel sounds General: Yes no CVA tenderness Back/Spine/Pelvis Back: no CVA tenderness Skin General skin exam: elasticity normal, turgor normal and dry skin Neuro General: patient oriented x3 Psych Appearance: grossly normal Mental Status: mental status grossly normal Assessment & Plan Assessment & Plan (1) GERD (gastroesophageal reflux disease): Code(s): K21.9 - Gastro-esophageal reflux disease without esophagitis Category: Medical Qualifiers: Esophagitis presence: esophagitis presence not specified Qualified Code(s): K21.9 - Gastro-esophageal reflux disease without esophagitis (2) H. pylori infection: Code(s): A04.8 - Other specified bacterial intestinal infections Category: Medical (3) Transaminitis: Code(s): R74.01 - Elevation of levels of liver transaminase levels Category: Medical (4) Colon cancer screening: Code(s): Z12.11 - Encounter for screening for malignant neoplasm of colon Category: Medical (5) Dysphagia: Code(s): R13.10 - Dysphagia, unspecified Qualifiers: Dysphagia type: esophageal phase Qualified Code(s): R13.19 - Other dysphagia (6) Postherpetic neuralgia: Code(s): B02.29 - Other postherpetic nervous system involvement Plan Patient denies any cardiac or respiratory symptoms.? Patient reports trouble swallowing randomly both liquids and solids. History of H pylori as mentioned in HPI and treated. Never retested for eradication. We will send him for upper endoscopy to rule out gastritis, esophagitis, Irizarry's, check for H pylori. Currently he is not taking any PPI. Will send H pylori test as well. History of transaminitis. Will repeat liver enzymes. Denies any issues with anesthesia in the past.? Denies any history of sleep apnea.? No history infectious diseases in the past or present.? Not on any anticoagulation therapy.? Maternal uncle diagnosed with CRC.? Patient denies melena, hematochezia, unintentional weight loss or ribbon like stools.? Discussed at length the pre-procedure,? prep, diet & medications as well as what to expect prior, during and after the procedure.?? Stressed the importance of good bowel prep.? Recommended the use of Vaseline or Calmoseptine OTC & baby wipes with bowel movements to promote comfort.? ?Patient verbalizes understanding and agrees to plan of care.? He was given the opportunity to ask questions and all questions answered.? We will see him after the procedure.? Patient reports pain behind his left ear and left side of the neck. Patient seen in urgent care for rash eruption in that area. Prednisone and topical corticosteroid given to patient. Patient reports that the rash went away, however he is experiencing pain and throbbing. Wakes him up during the night. Possible postherpetic neurologia. History of chickenpox as a child. Message sent to patient's PCP. I will send gabapentin at bedtime to try it. Patient will make an appointment with PCP for next week Patient is agreeable to this plan and verbalizes understanding of instructions. He was given the opportunity to ask questions and all questions answered. Thank you for allowing me to participate in his care Orders: Orders H Pylori Breath Test Today K21.9 - Gastro-esophageal reflux disease without esophagitis Liver Panel Today R74.01 - Elevation of levels of liver transaminase levels Medications: New bisacodyl (Dulcolax (bisacodyl)) Start taking 2 tablet every night 7 days before the procedure and 1 day before procedure take 4 tablets at noon time followed by MiraLax prep 10 mg (2 x 5 mg) PO BEDTIME 16 tabs 0RF Z12.11 - Encounter for screening for malignant neoplasm of colon polyethylene glycol 3350 (Miralax) As directed by gastroenterology department at [facility] 238 grams PO ONCE 238 grams 0RF Z12.11 - Encounter for screening for malignant neoplasm of colon gabapentin 300 mg PO BEDTIME 30 caps 0RF B02.29 - Other postherpetic nervous system involvement Coding Level of Care Code New Pt Level 3 (80207) Diagnoses Gastroesophageal reflux disease, unspecified whether esophagitis present K21.9 Esophagitis presence: esophagitis presence not specified H. pylori infection A04.8 Transaminitis R74.01 Colon cancer screening Z12.11 Esophageal dysphagia R13.19 Dysphagia type: esophageal phase Postherpetic neuralgia B02.29 Time Spent (min) 40 Comment 30 minutes spent with patient and additional 10 minutes spent reviewing his records
[2024-11-03 14:30] VITALS: BP 118/66; PULSE 72; O2SAT 97; BMI 29.7
--- OUTSIDE RECORDS SUMMARY | 2024-11-03 14:47 | XMS_ITS | Continuity of Care Document ---
Author Organization [facility] [address] [facility] [address] [place] [address] Phone [phone] Social History Type Date Description Comments Sex Male Sex Unknown Medical Devices Description No Information Available Encounters Description No Information Available Assessments Description No Information Available Plan of Treatment No Information Available Functional Status Description No Information Available Mental Status Description No Information Available Referrals Description No Information Available
--- OUTSIDE RECORDS SUMMARY | 2024-11-03 14:47 | XMS_ITS | Clinical Summary ---
Author Organization [facility] Address [address] [place] [address] Care Team Providers Care Search Engine Optimization Strategist Name Role Phone Ralph Rdz MD Primary Care Provider [phone] Allergies Active Allergy Reactions Criticality Noted Date [...] age to complete this topic Care Teams Search Engine Optimization Strategist Relationship Specialty Start Date End Date Ralph Rdz MD [address] [place] [id number] PCP - General Internal Medicine 01/02/20
--- OUTSIDE RECORDS SUMMARY | 2024-11-03 14:47 | XMS_ITS ---
Author Name [facility] Organization Unknown Care Team Organization Name Specialty Phone Email Start Date End Da te [facility] Ralph Rdz Primary Care 07/31/2022 11/12/19 24
== END 2024-11-03 15:27 | disposition home or self-care (01) ==
LOC: HO.HGI 14:17
PROVIDERS: PCP Internal Medicine; Visit Provider Nurse Practitioner Family
DX: K21.9 Gastro-esophageal reflux disease without esophagitis (principal); A04.8 Other specified bacterial intestinal infections; R74.01 Elevation of levels of liver transaminase levels; R13.19 Other dysphagia; B02.29 Other postherpetic nervous system involvement
CPT/HCPCS: 99203

== ENCOUNTER 2024-11-03 14:17 | Outpatient (REF) | payer OTHER, SELFPAY ==
--- OUTSIDE RECORDS SUMMARY | 2024-11-04 14:29 | XMS_ITS | Clinical Summary ---
Author Organization [facility] Address [address] [place] [address] Care Team Providers Care Patch Sander Name Role Phone Ralph Rdz MD Primary Care Provider [phone] Allergies Active Allergy Reactions Criticality Noted Date [...] age to complete this topic Care Teams Patch Sander Relationship Specialty Start Date End Date Ralph Rdz MD [address] [place] [phone] PCP - General Internal Medicine 01/02/20
--- OUTSIDE RECORDS SUMMARY | 2024-11-04 14:29 | XMS_ITS | Continuity of Care Document ---
Author Organization [facility] [address] [facility] [address] [place] [address] Phone [phone] Social History Type Date Description Comments Sex Male Sex Unknown Medical Devices Description No Information Available Encounters Description No Information Available Assessments Description No Information Available Plan of Treatment No Information Available Functional Status Description No Information Available Mental Status Description No Information Available Referrals Description No Information Available
== END 2024-11-03 14:18 | disposition home or self-care (01) ==
LOC: HO.LNP 14:17
PROVIDERS: PCP Internal Medicine; Visit Provider Nurse Practitioner Family
DX: K21.9 Gastro-esophageal reflux disease without esophagitis (principal); A04.8 Other specified bacterial intestinal infections; R74.01 Elevation of levels of liver transaminase levels; Z12.11 Encounter for screening for malignant neoplasm of colon; R13.19 Other dysphagia; B02.29 Other postherpetic nervous system involvement
CPT/HCPCS: 83013

== ENCOUNTER 2025-03-20 12:08 | Day surgery (SDC) | payer BC, SELFPAY ==
--- OUTSIDE RECORDS SUMMARY | 2025-03-13 14:07 | XMS_ITS | Clinical Summary ---
Author Organization [facility] Prior to 08/23/24 Address [address] [place] [address] Care Team Providers Care Leader Writer Name Role Phone Ralph Rdz MD Primary Care Provider [phone] Allergies Active Allergy Reactions Criticality Noted Date [...] age to complete this topic Care Teams Leader Writer Relationship Specialty Start Date End Date Ralph Rdz MD [address] [place] [id number] PCP - General Internal Medicine 01/02/20
[2025-03-17 08:47] VITALS: BMI 29.7
--- NOTE | 2025-03-17 10:41 | P.CONAN_ITS ---
Documented by User: Elba Haque NP 03/17/25 10:42 HPI - Anesthesia Eval Consult details Narrative: 55 yr old male for upper endoscopy, colonoscopy PMFSH Active Problems Active Problems: All Active Problems Hypogonadism in male (Acute) Tendinitis of right rotator cuff (Acute) Arthritis of right acromioclavicular joint (Acute) Postherpetic neuralgia (Acute) Transaminitis (Acute) Rash and nonspecific skin eruption (Acute) Contact dermatitis (Acute) Vitamin D deficiency (Acute) Hyperlipidemia (Acute) General medical exam (Acute) Elevated ALT measurement (Acute) Elevated AST (SGOT) (Acute) Abdominal pain (Acute) H. pylori infection (Acute) Elevated blood pressure reading in office without diagnosis of hypertension (Acute) Class 1 obesity with body mass index (BMI) of 33.0 to 33.9 in adult (Acute) Hearing loss in right ear (Acute) Establishing care with new doctor, encounter for (Acute) Annual physical exam (Acute) Decreased range of motion of right shoulder (Acute) Right shoulder pain (Acute) GERD (gastroesophageal reflux disease) (Acute) Nausea & vomiting (Acute) Low libido (Acute) Colon cancer screening (Acute) Past Medical History Medical History (Updated 03/17/25 @ 08:49 by Rosibel Kumar RN) Postherpetic neuralgia Transaminitis Vitamin D deficiency Hyperlipidemia Elevated ALT measurement Elevated AST (SGOT) Abdominal pain H. pylori infection Elevated blood pressure reading in office without diagnosis of hypertension Class 1 obesity with body mass index (BMI) of 33.0 to 33.9 in adult Hearing loss in right ear Establishing care with new doctor, encounter for Decreased range of motion of right shoulder Right shoulder pain GERD (gastroesophageal reflux disease) Nausea & vomiting Low libido Family History Family History (Updated 11/03/24 @ 14:30 by KIRAN Bass) Father Cancer Mother HIV (human immunodeficiency virus infection) Maternal Uncle Colon cancer Surgical History Surgical History (Updated 03/20/25 @ 13:03 by Feli Jenkins RN) S/P excision of lipoma History of hernia surgery History of shoulder surgery Social History Social History Housing: House Alcohol intake: current Alcohol intake frequency: holidays/special occasions only Patient Tobacco Use Status: Never used Tobacco e-Cigarette/Vaping Use: Never Used Are you DNR?: No Advance Directives: No Advance Directives Information Provided: Yes service: No Current occupational status: employed 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, 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 Cognitive needs: No Hearing needs: No Vision needs: Yes (rx glasses) Meds Allergies Allergy/AdvReac Type Severity Reaction Status Date / Time aspirin (ASPIRIN) Allergy Unknown SWELLING Verified 11/03/24 14:24 shellfish derived Allergy Unknown Swelling Verified 11/03/24 14:24 Exam Height,Weight and Vital Signs: Height 5 ft 4 in Weight 78.471 kg Assessment and Plan Assessment Anesthesia Assessment: Chart Reviewed Documented by User: Gordon Smallwood MD 03/20/25 16:28 PMF Past Medical History Medical History (Updated 03/17/25 @ 08:49 by Rosibel Kumar RN) Postherpetic neuralgia Transaminitis Vitamin D deficiency Hyperlipidemia Elevated ALT measurement Elevated AST (SGOT) Abdominal pain H. pylori infection Elevated blood pressure reading in office without diagnosis of hypertension Class 1 obesity with body mass index (BMI) of 33.0 to 33.9 in adult Hearing loss in right ear Establishing care with new doctor, encounter for Decreased range of motion of right shoulder Right shoulder pain GERD (gastroesophageal reflux disease) Nausea & vomiting Low libido Family History Family History (Updated 11/03/24 @ 14:30 by KIRAN Bass) Father Cancer Mother HIV (human immunodeficiency virus infection) Maternal Uncle Colon cancer Family history of problems with anesthesia: No Surgical History Surgical History (Updated 03/20/25 @ 13:03 by Feli Jenkins RN) S/P excision of lipoma History of hernia surgery History of shoulder surgery History of Problems with Anesthesia: No Social History Social History Housing: House Alcohol intake: current Alcohol intake frequency: holidays/special occasions only Patient Tobacco Use Status: Never used Tobacco e-Cigarette/Vaping Use: Never Used Are you DNR?: No Advance Directives: No Advance Directives Information Provided: Yes service: No Current occupational status: employed 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, 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 Cognitive needs: No Hearing needs: No Vision needs: Yes (rx glasses) Meds Allergies Allergy/AdvReac Type Severity Reaction Status Date / Time aspirin (ASPIRIN) Allergy Unknown SWELLING Verified 11/03/24 14:24 shellfish derived Allergy Unknown Swelling Verified 11/03/24 14:24 Exam Airway Mallampati Class: I TM Dist: >3cm Neck ROM: Full Loose/Missing/Broken Teeth: No Heart: ok Lungs: ok Assessment and Plan Assessment Anesthesia Assessment: Anesthesia Plan Discussed Final Anesthetic Review Family History of Problems with Anesthesia: No History of Problems with Anesthesia: No NPO: Yes ASA Class: II Final Preanesthetic Review: No Changes in Pt Med Stat, Meds/Allgs Chart Reviewed, Consent Obtained/Reviewed and Anes Risks/Benef Reviewed Patient Risk: Intermediate Procedure Risk: Intermediate Anesthetic Plan Anesthetic Plan: Agree w/ Assess. and Plan and TIVA Disposition: Standard PACU
[2025-03-20 12:57] VITALS: BMI 31.4
[2025-03-20 13:13] VITALS: BP 112/73; PULSE 61; RESP 18; TEMP 37.1; O2SAT 96
[2025-03-20] MEDS: Lactated Ringers 1,000 ML 100 ML IVCONT (13:34)
--- NOTE | 2025-03-20 15:05 | MHC.SHP ---
Pre-Procedural Eval Section A - 24 Hr Update-Section A only Date of Service: 03/20/25 Section B - Complete if H&P > 30 days Chief Complaint: Dysphagia, screening Details of Present Illness: Postherpetic neuralgia Transaminitis Rash and nonspecific skin eruption Contact dermatitis Vitamin D deficiency Hyperlipidemia General medical exam Elevated ALT measurement Elevated AST (SGOT) Abdominal pain H. pylori infection Elevated blood pressure reading in office without diagnosis of hypertension Class 1 obesity with body mass index (BMI) of 33.0 to 33.9 in adult Hearing loss in right ear Establishing care with new doctor, encounter for Annual physical exam Decreased range of motion of right shoulder Right shoulder pain GERD (gastroesophageal reflux disease) Nausea & vomiting Low libido Colon cancer screening Surgical History History of hernia surgery History of shoulder surgery Family History (Updated 11/03/24 @ 14:30 by KIRAN Bass) Father Cancer Mother HIV (human immunodeficiency virus infection) Maternal Uncle Colon cancer Present Medications: see Short Stay Collaborative assessment Allergies: Allergies Allergy/AdvReac Type Severity Reaction Status Date / Time aspirin (ASPIRIN) Allergy Unknown SWELLING Verified 11/03/24 14:24 shellfish derived Allergy Unknown Swelling Verified 11/03/24 14:24 Review of Systems Review of Systems Comment: 10 point ROS negative Exam Exam Comment: Gen appear: No acute distress HEENT: no icterus Chest: No overt resp distress Abd: soft, nontender, nondistended Psych: Stable affect, answering questions appropriately Neuro: A/Ox3 noted to move all extremities spontaneously Ext: no peripheral edema Plan Diagnosis/Plan: Unchanged I have reviewed the history and physical and performed a pertinent physical examination on my patient. No changes have occurred unless specified. Time Spent With Patient Time: Total time managing care of this patient today ____ minutes.
[2025-03-20 16:58] VITALS: BP 98/53; PULSE 56; RESP 18; TEMP 36.5; O2SAT 95
--- NOTE | 2025-03-20 16:59 | P.OPN-COLO_ITS ---
Colonoscopy Operative Note Operative Note Date of Service: 03/20/25 Narrative: Procedure: Upper endoscopy and colonoscopy Indication: Dysphagia, screening Endoscopist: Rayne Lima MD Anesthesia Provider: Dr Gordon Smallwood Anesthesia type: MAC Instrument: [id number] and [id number] EGD Procedure:?? The procedure, indications, preparation and potential complications were reviewed with the patient, who indicated understanding and gave written informed consent to proceed. The endoscope was introduced through the mouth, and advanced to the 2nd part of the duodenum. The mucosa was carefully examined on slow withdrawal of the endoscope. The patient tolerated the procedure well. There were no immediate complications.? EGD Findings:? * Esophagus:? Diffusely edematous esophageal mucosa with linear furrowing noted suspicious for underlying eosinophilic esophagitis. No obvious stricture or narrowing noted. The Z-line was at 38 cm. Cold forceps biopsies were taken from middle and lower esophagus to rule out eosinophilic esophagitis. * Stomach:?Erythema and erosions in the antrum. A 10 mm linear [place] IIC ulcer was noted in the distal gastric body along the greater curvature. Cold forceps biopsies were taken from the edge of the ulcer for histology. A [place] scientific resolution 360 degree ultra clip was applied for hemostasis due to high-risk stigmata. Retroflexion was performed in the cardia. Cold forceps biopsies were also taken from gastric body and antrum to rule out H pylori. * Duodenum:? Normal duodenal mucosa. Colonoscopy Procedure:? The patient was then turned for the colonoscopy. A digital rectal exam was per formed which was normal.? A distal attachment cap was affixed to the tip of the scope and the colonoscope was then inserted through the anus and advanced through the colon and advanced to the cecum at 75 cm and terminal ileum.? Appendiceal orifice and ileocecal valve were identified. Mucosa was carefully examined under high definition white light as the instrument was slowly withdrawn in a retrograde panoramic fashion. Retroflexion was performed in rectum. The procedure was not difficult. The quality of the prep was BBPS: 3+2+2 = adequate Withdrawal time 17 minutes Limitations: No limitations Findings: Mucosa: Normal colon and terminal ileum mucosa. Protruding lesions: * 1 sessile polyp of size 5 mm noted in ascending colon. Cold snare polypectomy was performed. The polyp was completely removed and retrieved. * 1 sessile polyp of size 6 mm noted in descending colon. Cold snare polypectomy was performed. The polyp was completely removed and retrieved. * 1 sessile polyp of size 3 mm noted in sigmoid colon. Cold snare polypectomy was performed. The polyp was completely removed and retrieved. * Medium internal hemorrhoids without stigmata of recent bleeding. Impression: 1. Abnormal esophageal mucosa (biopsy) 2. Gastritis (biopsy) 3. Gastric Ulcer [place] IIC (biopsy, endoclip) 4. Normal colon and terminal ileum mucosa 5. Total of 3 polyps removed 6. Internal hemorrhoids Recommendations:?? * Follow-up path results * Avoid NSAIDs * H Pylori treatment if biopsies + * Start omeprazole 20 mg b.i.d. x 8-12 weeks and then once daily * If EoE confirmed, recommend repeat EGD in 2-3 months on BID PPI dosing to assess response and to determine need for topical steroid therapy. * Repeat colonoscopy for polyp surveillance in 3 years if all 3 polyps are adenomas, otherwise 5-7 years depending on results.
[2025-03-20 17:13] VITALS: BP 115/71; PULSE 59; RESP 14; O2SAT 97
[2025-03-20 17:26] VITALS: TEMP 36.4
== END 2025-03-20 17:30 | disposition home or self-care (01) ==
PROVIDERS: PCP Internal Medicine; Visit Provider Internal Medicine
PROC: (CPT 45385; principal; 2025-03-20 14:10)
DX: Z12.11 Encounter for screening for malignant neoplasm of colon (principal); K21.9 Gastro-esophageal reflux disease without esophagitis; A04.8 Other specified bacterial intestinal infections; R13.10 Dysphagia, unspecified; K64.8 Other hemorrhoids; K25.9 Gastric ulcer, unspecified as acute or chronic, without hemorrhage or perforation; D12.2 Benign neoplasm of ascending colon; D12.4 Benign neoplasm of descending colon; K63.5 Polyp of colon
CPT/HCPCS: 45385; 43239; 88305; 88313; 88342; J2003; J2704

== ENCOUNTER → 2025-03-20 12:08 | Outpatient (BNV) | payer BC, SELFPAY | PROVIDERS: PCP Internal Medicine; Visit Provider Internal Medicine | DX: Z12.11 Encounter for screening for malignant neoplasm of colon (principal); K63.5 Polyp of colon; K64.8 Other hemorrhoids; R13.10 Dysphagia, unspecified; K22.89 Other specified disease of esophagus; K29.70 Gastritis, unspecified, without bleeding; K25.9 Gastric ulcer, unspecified as acute or chronic, without hemorrhage or perforation | CPT/HCPCS: 43239; 45385 ==